=== PATIENT | male | born 1930 | race Caucasian/White ===

== ENCOUNTER 2017-04-08 22:02 | Inpatient (IN) | payer OTHER ==
[~2017-04-08] VITALS: Ht 177.8 cm; Wt 84.0 kg
[~2017-04-08 22:02] MED LIST: APR25 PO; ASPI81TA28 PO; FURO-85 PO; LISI-725 PO; METF-384 PO; METO50TA16 PO; PRAV40TA2 PO; PRLSR20 PO; VERA240T10 PO
[2017-04-08] MEDS ORDERED: SODIUM CHLORIDE 0.9% 1000ML 1,000 ML IV SCH (22:19)
--- NOTE | 2017-04-08 22:22 | EMERGENCY ROOM VISIT NOTE ---
History Report prepared by Torsten: Claribel Lazo Under the Supervision of: Dr. Darren Ayala M.D. First contact with patient: 22:02 Chief Complaint: STROKE SYMPTOMS Stated Complaint: STROKE ALERT History of Present Illness The patient is a 86 year old male who presents to the Emergency Room with complaints of sudden stroke symptoms 3 hours prior to arrival. Per EMS, the patient has been feeling dizzy on and off for the last 2 weeks, but his friend notes that this has been going on for a year.The patient reports that he felt fine all day until 3 hours prior to arrival when he began to feel dizzy. The patient states that he is having a hard time getting his mouth to move to articulate his thoughts. Per EMS, the patient was drooling from the left side of his face, had a left facial droop, and an unsteady gait. The patient denies vomiting. The patient has non-insulin dependent diabetes mellitus. He denies any recent falls and states that he has had a tetanus shot in the last 10 years. The patient has no history of strokes or atrial fibrillation and is not on any blood thinners. Source of History: patient, EMS Onset: 3 hours prior to arrival Position: other (global) Quality: other (stroke symptoms ) Timing: other (sudden ) Associated Symptoms: No vomiting Note: additional symptoms: drooling, left facial droop, unsteady gait Review of Systems See HPI for pertinent positives and negatives. A total of ten systems were reviewed and were otherwise negative. Past Medical & Surgical Medical Problems: (1) Anemia Nos (2) Diab Madelyn Wo Comp Type Ii Or Nos/Not Uncontrolled (3) Esophageal Reflux (4) Gout Nos (5) Hypertension Nos (6) Stroke-like symptoms Family History No pertinent family history stated. Social History Smoking Status: Former Smoker Drug Use: none Marital Status: Housing Status: lives alone Occupation Status: retired Current/Historical Medications Scheduled Ascorbic Acid (Vitamin C), 500 MG PO DAILY Aspirin (Aspirin Ec), 81 MG PO DAILY Ferrous Gluconate (Iron Supplement), 324 MG PO DAILY Furosemide (Lasix), 20 MG PO QAM Lisinopril (Zestril), 20 MG PO BID Metformin Hcl (Glucophage), 1,000 MG PO BID Metoprolol Tartrate (Lopressor) (Lopressor), 50 MG PO BID Pravastatin Sodium (Pravastatin Sodium), 40 MG PO HS Verapamil Hcl (Verapamil Hcl Sa), 240 MG PO QAM Allergies Coded Allergies: No Known Allergies (Verified , 04/08/17) Physical Exam Vital Signs Date Time Temp Pulse Resp B/P (MAP) Pulse Ox O2 Delivery O2 Flow Rate FiO2 04/09/17 03:00 67 20 147/75 96 Nasal Cannula 2.0 04/09/17 02:08 56 04/09/17 02:03 59 18 141/85 99 Nasal Cannula 2.0 04/08/17 23:28 63 22 137/76 100 Nasal Cannula 2.0 04/08/17 23:00 53 20 153/73 96 Room Air 04/08/17 22:42 52 20 131/73 94 Room Air 04/08/17 22:37 93 Room Air 04/08/17 22:23 54 04/08/17 22:21 61 04/08/17 22:12 36.4 64 20 145/67 98 Room Air Physical Exam GENERAL: Awake, alert, HENT: Normocephalic, atraumatic. Oropharynx unremarkable. Dry mucous membranes. EYES: Normal conjunctiva. Sclera non-icteric. NECK: Supple. No nuchal rigidity. FROM. No JVD. RESPIRATORY: Clear to auscultation. CARDIAC: Irregular irregular rate, normal rhythm. Extremities warm and well perfused. Pulses equal. ABDOMEN: Soft, non-distended. No tenderness to palpation. No rebound or guarding. No masses. RECTAL: Deferred. MUSCULOSKELETAL: Chest examination reveals no tenderness. The back is symmetrical on inspection without obvious abnormality. There is no CVA tenderness to palpation. No joint edema. LOWER EXTREMITIES: Calves are equal size bilaterally and non-tender. No edema. No discoloration. NEURO: left rachel-facial droop with dysarthria. NIH score of 3. Extremities without sensory or motor deficits noted. No cerebellar impairment. SKIN: No rash or jaundice noted. Medical Decision & Procedures ER Provider Diagnostic Interpretation: Radiology results as stated below per my review and radiologist interpretation: HEAD CT NONCONTRAST CT DOSE: 614.27 mGy.cm HISTORY: Stroke symptoms. TECHNIQUE: Multiaxial CT images of the head were performed without the use of intravenous contrast. Automated exposure control was utilized for this study. A dose lowering technique was utilized adhering to the principles of ALARA. Comparison: None. Findings: The paranasal sinuses and mastoid air cells are clear. The calvarium and skull base are intact. There is no mass, hematoma, midline shift, acute infarct. White matter hypodensity is nonspecific but suggestive of microvascular ischemic change. The ventricles and sulci demonstrate mild age-related involutional changes. Impression: No acute intracranial abnormality. Atrophy and microvascular ischemic changes. Electronically signed by: Med Rivas M.D. 04/08/2017 10:23 PM Dictated Date/Time: 04/08/2017 10:21 PM CHEST ONE VIEW PORTABLE HISTORY: Stroke symptoms. COMPARISON: Chest 12/08/2014. FINDINGS: The heart is mildly enlarged. This is slightly increased in size. Perihilar interstitial and vascular thickening has progressed consistent with mild congestive change. No pleural effusions. No pneumothorax. No new focal lung consolidations to suggest pneumonia. Right shoulder prosthesis. IMPRESSION: Progression of the mild cardiomegaly and mild pulmonary vascular congestion. Electronically signed by: Med Rivas M.D. 04/08/2017 11:01 PM Dictated Date/Time: 04/08/2017 11:00 PM [facility] MRI/MRA preliminary read: "MRI HEAD : Cortical diffusion restriction left posterior frontal lobe, involving lateral aspect of precentral gyrus, consistent with acute infarct. No substantial associated T2/FLAIR signal abnormality, suggesting that infarct is less than 6- 8 hours old. Periventricular and scattered T2/FLAIR white matter hyperintensities, nonspecific but most commonly related to chronic small vessel ischemic changes. Global cerebral volume loss No evidence of intracranial hemorrhage. MRA HEAD : No evidence of vessel occlusion. Specifically, the left MCA and its branches are patent as visualized (Given peripheral and relatively small size of acute infarct, associated occlusion may be below resolution or out of field of view). origin of right posterior cerebral artery and there is severe focal stenosis of the right posterior cerebral artery MRA NECK : Mural plaque at origin of left internal carotid artery without hemodynamically significant stenosis. Right vertebral artery is hypoplastic and not well-visualized proximally." Laboratory Results Test 04/08/17 22:29 04/08/17 22:32 04/08/17 22:38 Bedside Prothrombin Time INR 1.0 (0.9-1.1) Immature Granulocyte % (Auto) 0.5 % White Blood Count 14.34 K/uL (4.8-10.8) Red Blood Count 4.02 M/uL (4.7-6.1) Hemoglobin 12.1 g/dL (14.0-18.0) Hematocrit 36.5 % (42-52) Mean Corpuscular Volume 90.8 fL (80-100) Mean Corpuscular Hemoglobin 30.1 pg (25-34) Mean Corpuscular Hemoglobin Concent 33.2 g/dl (32-36) Platelet Count 315 K/uL (130-400) Mean Platelet Volume 11.4 fL (7.4-10.4) Neutrophils (%) (Auto) 80.7 % Lymphocytes (%) (Auto) 8.9 % Monocytes (%) (Auto) 6.4 % Eosinophils (%) (Auto) 3.1 % Basophils (%) (Auto) 0.4 % Neutrophils # (Auto) 11.57 K/uL (1.4-6.5) Lymphocytes # (Auto) 1.27 K/uL (1.2-3.4) Monocytes # (Auto) 0.92 K/uL (0.11-0.59) Eosinophils # (Auto) 0.45 K/uL (0-0.5) Basophils # (Auto) 0.06 K/uL (0-0.2) Immature Granulocyte # (Auto) 0.07 K/uL (0.00-0.02) Prothrombin Time 10.7 SECONDS (9.0-12.0) Prothromb Time International Ratio 1.0 (0.9-1.1) Activated Partial Thromboplast Time 25.0 SECONDS (21.0-31.0) Partial Thromboplastin Ratio 1.0 Magnesium Level 1.7 mg/dl (1.8-2.4) Total Creatine Kinase 36 U/L (39-308) Creatine Kinase MB < 0.5 ng/ml (0.5-3.6) Creatine Kinase MB Ratio (0-3.0) Bedside Hemoglobin 12.9 g/dl (14.0-18.0) Bedside Hematocrit 38 % (42-52) Bedside Sodium 137 mEq/L (135-144) Bedside Potassium 5.0 mEq/L (3.3-5.0) Bedside Chloride 97 mEq/L (101-112) Bedside Total CO2 26 mEq/l (24-31) Bedside Blood Urea Nitrogen 18 mg/dl (7-18) Bedside Creatinine 1.7 mg/dl (0.6-1.3) Bedside Glucose (other) 301 mg/dl (70-99) Bedside Ionized Calcium (Lucia) 1.14 mmol/l (1.12-1.32) Laboratory results reviewed by me Medications Administered Medications (Trade) Dose Ordered Sig/Maritza Route Start Time Stop Time Status Last Admin Dose Admin Sodium Chloride 1,000 ml @ 50 mls/hr Q20H IV 04/08/17 22:19 04/09/17 04:39 DC 04/08/17 22:47 50 MLS/HR Sodium Chloride 250 ml @ 999 mls/hr Q16M STAT IV 04/08/17 22:45 04/08/17 23:00 DC 04/08/17 22:47 999 MLS/HR Sodium Chloride 250 ml @ 999 mls/hr Q16M STAT IV 04/08/17 23:15 04/08/17 23:30 DC 04/08/17 23:15 999 MLS/HR Sodium Chloride 500 ml @ 125 mls/hr Q4H STAT IV 04/08/17 23:15 04/09/17 03:14 DC 04/08/17 23:15 125 MLS/HR ECG Indication: other (stroke symptoms) Rate (beats per minute): 56 Rhythm: atrial fibrillation Findings: no acute ischemic change, other (slow ventricular respons, normal axis) Change: atrial fibrillation is new from prior ECG's ED Course 2213: The patient was evaluated in room B1. A complete history and physical exam was performed. 2219: Ordered Sodium Chloride 1,000 ml @ 50 mls/hr IV. 2225: The patient was evaluated by Dr. Fox via telemedicine. 2245: Ordered Sodium Chloride 250 ml @ 999 mls/hr IV. 2315:Ordered Sodium Chloride 500 ml @ 125 mls/hr IV, Sodium Chloride 250 ml @ 999 mls/hr IV. 0250: Stat read MRI results show a left frontal acute stroke. Otherwise no evidence of edema or basilar thrombus. [facility] medicine paged for admission. Medical Decision I reviewed the patient's past medical history, medications, and the nursing notes as described above. Differentials include: ischemic CVA, hemorrhagic CVA, dehydration, electrolyte imbalance, infection, pneumonia, and urinary infection. Patient is an 86-year-old gentleman with past medical history of hypertension presents to the emergency department with new onset left hemifacial droop and dysarthria which he first noticed around 9:30 in the setting of feeling ill and dizzy around 7 PM per history of present illness. Arrival the patient continues with symptoms of facial droop and dysarthria an NIH score of 3. Otherwise extremities 5 out of 5 strength and sensation is normal. No cerebellar impairment. CT head done on arrival negative for any acute findings. Stroke activation prior to arrival, toe stroke was done and it was determined and not a TPA candidate. However, does have what appears to be new onset afib. Recommending MRI to further characterize stroke and if large would avoid anticoagulation however if small and could begin heparin to Coumadin. Only requesting MRA of the neck to evaluate for possible basilar thrombus. If present and would recommend transfer to [place] however otherwise could remain here for further management. [facility] preliminary read shows: "Cortical diffusion restriction left posterior frontal lobe, involving lateral aspect of precentral gyrus, consistent with acute infarct. No substantial associated T2/FLAIR signal abnormality, suggesting that infarct is less than 6-8 hours old." I d/w [facility] radiologist and there is no evidence basilar thrombus or edema. Will admit to medicine for further management and neurology consultation. Medication Reconcilliation Current Medication List: was personally reviewed by me Blood Pressure Screening Patient's blood pressure: Elevated blood pressure Blood pressure disposition: Elevated BP felt to be situational Consults Time Called: 2219 Consulting Physician: Dr. Fox- [facility] Neurology Returned Call: [phone] The patient was evaluated by Dr. Fox via telemedicine. Impression Primary Impression: Stroke Scribe Attestation The scribe's documentation has been prepared under my direction and personally reviewed by me in its entirety. I confirm that the note above accurately reflects all work, treatment, procedures, and medical decision making performed by me. Departure Information Referrals No Doctor, Assigned (PCP) Patient Instructions My [facility]
--- NOTE | 2017-04-08 22:25 | DIAGNOSTIC IMAGING REPORT ---
HEAD CT NONCONTRAST CT DOSE: 614.27 mGy.cm HISTORY: Stroke symptoms. TECHNIQUE: Multiaxial CT images of the head were performed without the use of intravenous contrast. Automated exposure control was utilized for this study. A dose lowering technique was utilized adhering to the principles of ALARA. Comparison: None. Findings: The paranasal sinuses and mastoid air cells are clear. The calvarium and skull base are intact. There is no mass, hematoma, midline shift, acute infarct. White matter hypodensity is nonspecific but suggestive of microvascular ischemic change. The ventricles and sulci demonstrate mild age-related involutional changes. Impression: No acute intracranial abnormality. Atrophy and microvascular ischemic changes. Electronically signed by: Med Rivas M.D. 04/08/2017 10:23 PM Dictated Date/Time: 04/08/2017 10:21 PM
[2017-04-08] MEDS ORDERED: SODIUM CHLORIDE 0.9% 500ML 500 ML IV STA ×2 (22:39→23:15)
[2017-04-08 22:42] LABS: BASO % 0.4 %; BASO ABS # 0.06 K/uL (0-0.2); COMPLETE YES; EOS % 3.1 %; HEMATOCRIT 36.5 % (42-52); IG% 0.5 %; LYMPH % 8.9 %; LYMPH ABS # 1.27 K/uL (1.2-3.4); MEAN CELL VOLUME 90.8 fL (80-100); MEAN CORPUSCULAR HEMOGLOBIN 30.1 pg (25-34); MEAN CORPUSCULAR HGB CONC 33.2 g/dl (32-36); MEAN PLATELET VOLUME 11.4 fL (7.4-10.4); MONO % 6.4 %; NEUT % 80.7 %; PLATELET COUNT 315 K/uL (130-400); RED BLOOD COUNT 4.02 M/uL (4.7-6.1); WHITE BLOOD COUNT 14.34 K/uL (4.8-10.8)
[2017-04-08] MEDS ORDERED: SODIUM CHLORIDE 0.9% 250ML 250 ML IV STA ×2 (22:45→23:15)
[2017-04-08 22:49] LABS: PROTHROMBIN TIME (PATIENT) 10.7 SECONDS (9.0-12.0)
[2017-04-08 22:52] LABS: ISTAT CREATININE 1.7 mg/dl (0.6-1.3); ISTAT HEMOGLOBIN 12.9 g/dl (14.0-18.0); ISTAT IONIZED CALCIUM 1.14 mmol/l (1.12-1.32)
[2017-04-08 23:01] LABS: BLOOD UREA NITROGEN 18 mg/dl (7-18); BUN/CREATININE RATIO 10.6 (10-20); CALCIUM 9.4 mg/dl (8.5-10.1); CARBON DIOXIDE 28 mmol/L (21-32); CHLORIDE 99 mmol/L (98-107); GLUCOSE 296 mg/dl (70-99); MAGNESIUM 1.7 mg/dl (1.8-2.4); POTASSIUM 4.9 mmol/L (3.5-5.1); SODIUM 135 mmol/L (136-145)
--- NOTE | 2017-04-08 23:02 | DIAGNOSTIC IMAGING REPORT ---
CHEST ONE VIEW PORTABLE HISTORY: Stroke symptoms. COMPARISON: Chest 12/08/2014. FINDINGS: The heart is mildly enlarged. This is slightly increased in size. Perihilar interstitial and vascular thickening has progressed consistent with mild congestive change. No pleural effusions. No pneumothorax. No new focal lung consolidations to suggest pneumonia. Right shoulder prosthesis. IMPRESSION: Progression of the mild cardiomegaly and mild pulmonary vascular congestion. Electronically signed by: Med Rivas M.D. 04/08/2017 11:01 PM Dictated Date/Time: 04/08/2017 11:00 PM
[2017-04-08] MEDS ORDERED: FERR324T PO (23:31)
[2017-04-08] MEDS ORDERED: ASCO-63 PO (23:31)
[2017-04-09] MEDS ORDERED: GADAVIST IV PRN (03:15)
[2017-04-09] MEDS ORDERED: PHARMACIST DISCHARGE MED REC CONSULT PRN (03:45)
[2017-04-09] MEDS ORDERED: ONDANSETRON INJ 2 MG/ML 2 ML VIAL IV PRN (03:45)
[2017-04-09] MEDS ORDERED: ALUMINUM/MAGNESIUM/SIMETH (MAALOX MAX) 30 ML UDC PO PRN (03:45)
[2017-04-09] MEDS ORDERED: NITROGLYCERIN 0.4 MG SL PER TAB CHARGE SL PRN (03:45)
[2017-04-09] MEDS ORDERED: POLYETHYLENE (MIRALAX) 17 GM PACK PO PRN (03:45)
--- NOTE | 2017-04-09 03:51 | History and Physical ---
History & Physical Date & Time of Service: Apr 09, 2017 at 03:50 Chief Complaint: Stroke Alert Primary Care Physician: No Doctor, Assigned History of Present Illness Source: patient, family 86-year-old male with a past medical history of hypertension, diabetes, GERD, atrial fibrillation presented to the ER with complaints of dizziness and strokelike symptoms which started 3 hours prior to arrival. Per EMS, the patient had been experiencing dizziness on and off for about 2 weeks and was noted to have left-sided facial droop and drooling from the left side of his face with some slurring of speech today. Denies any motor weakness, numbness or tingling, diplopia or blurriness of vision. The patient lives independently and ambulates without the aid of any walkers and denies any recent falls. Denies any chest pain, shortness of breath, nausea or vomiting or abdominal pain. Denies any fevers or chills or urinary complaints. Past Medical/Surgical History Diabetes, hypertension, atrial fibrillation Social History Smoking Status: Former Smoker Drug Use: none Marital Status: Occupational Status: retired Immunizations History of Influenza Vaccine: Yes Influenza Vaccine Date: Apr 27, 2009 History of Tetanus Vaccine?: Unknown History of Pneumococcal: Yes Pneumococcal Date: Apr 27, 2007 History of Hepatitis B Vaccine: Unknown Multi-Drug Resistant Organisms History of MDRO: No Allergies Coded Allergies: No Known Allergies (Verified , 04/08/17) Home Medications Scheduled Ascorbic Acid (Vitamin C), 500 MG PO DAILY Aspirin (Aspirin Ec), 81 MG PO DAILY Ferrous Gluconate (Iron Supplement), 324 MG PO DAILY Furosemide (Lasix), 20 MG PO QAM Lisinopril (Zestril), 20 MG PO BID Metformin Hcl (Glucophage), 1,000 MG PO BID Metoprolol Tartrate (Lopressor) (Lopressor), 50 MG PO BID Pravastatin Sodium (Pravastatin Sodium), 40 MG PO HS Verapamil Hcl (Verapamil Hcl Sa), 240 MG PO QAM Review of Systems Constitutional: No fever, No chills Eyes: No worsening of vision ENT: + hearing loss Respiratory: No cough, No sputum Cardiovascular: No chest pain Abdomen: No pain, No nausea, No vomiting Musculoskeletal: No joint pain Genitourinary - Male: No hematuria, No dysuria Neurologic: + problem reported (left facial droop no resolved. Slurring of speech), No paralysis, No numbness/tingling Endocrine: No fatigue Hematologic / Lymphatic: No abnormal bleeding/bruising Integumentary: No rash Physical Exam Vital Signs Date Time Temp Pulse Resp B/P (MAP) Pulse Ox O2 Delivery O2 Flow Rate FiO2 04/09/17 03:00 67 20 147/75 96 Nasal Cannula 2.0 04/09/17 02:08 56 04/09/17 02:03 59 18 141/85 99 Nasal Cannula 2.0 04/08/17 23:28 63 22 137/76 100 Nasal Cannula 2.0 04/08/17 23:00 53 20 153/73 96 Room Air 04/08/17 22:42 52 20 131/73 94 Room Air 04/08/17 22:37 93 Room Air 04/08/17 22:23 54 04/08/17 22:21 61 04/08/17 22:12 36.4 64 20 145/67 98 Room Air General Appearance: WD/WN, no apparent distress Eyes: normal inspection ENT: + pertinent finding (hearing loss) Neck: supple Respiratory/Chest: chest non-tender, + rhonchi Cardiovascular: + irregularly irregular Abdomen/GI: non tender, soft Extremities/Musculoskelatal: no pedal edema, normal range of motion Neurologic/Psych: cylinder batcher II-XII nml as tested, alert, normal mood/affect, oriented x 3 Skin: normal color Diagnostics Laboratory Results Results Past 24 Hours Test 04/08/17 22:21 04/08/17 22:29 04/08/17 22:32 04/08/17 22:38 Range/Units Bedside Glucose 270 70-99 mg/dl Bedside Prothrombin Time INR 1.0 0.9-1.1 White Blood Count 14.34 4.8-10.8 K/uL Red Blood Count 4.02 4.7-6.1 M/uL Hemoglobin 12.1 14.0-18.0 g/dL Hematocrit 36.5 42-52 % Mean Corpuscular Volume 90.8 80-100 fL Mean Corpuscular Hemoglobin 30.1 25-34 pg Mean Corpuscular Hemoglobin Concent 33.2 32-36 g/dl Platelet Count 315 130-400 K/uL Mean Platelet Volume 11.4 7.4-10.4 fL Neutrophils (%) (Auto) 80.7 % Lymphocytes (%) (Auto) 8.9 % Monocytes (%) (Auto) 6.4 % Eosinophils (%) (Auto) 3.1 % Basophils (%) (Auto) 0.4 % Neutrophils # (Auto) 11.57 1.4-6.5 K/uL Lymphocytes # (Auto) 1.27 1.2-3.4 K/uL Monocytes # (Auto) 0.92 0.11-0.59 K/uL Eosinophils # (Auto) 0.45 0-0.5 K/uL Basophils # (Auto) 0.06 0-0.2 K/uL RDW Standard Deviation 45.1 36.4-46.3 fL RDW Coefficient of Variation 13.7 11.5-14.5 % Immature Granulocyte % (Auto) 0.5 % Immature Granulocyte # (Auto) 0.07 0.00-0.02 K/uL Prothrombin Time 10.7 9.0-12.0 SECONDS Prothromb Time International Ratio 1.0 0.9-1.1 Activated Partial Thromboplast Time 25.0 21.0-31.0 SECONDS Partial Thromboplastin Ratio 1.0 Sodium Level 135 136-145 mmol/L Potassium Level 4.9 3.5-5.1 mmol/L Chloride Level 99 98-107 mmol/L Carbon Dioxide Level 28 21-32 mmol/L Anion Gap 8.0 20.0 16-25 mmol/L Blood Urea Nitrogen 18 7-18 mg/dl Creatinine 1.70 0.60-1.40 mg/dl Est Creatinine Clear Calc Drug Dose 34.3 ml/min Estimated GFR () 41.1 Estimated GFR (Non- 35.5 BUN/Creatinine Ratio 10.6 10-20 Random Glucose 296 70-99 mg/dl Calcium Level 9.4 8.5-10.1 mg/dl Magnesium Level 1.7 1.8-2.4 mg/dl Total Creatine Kinase 36 39-308 U/L Creatine Kinase MB < 0.5 0.5-3.6 ng/ml Creatine Kinase MB Ratio 0-3.0 Troponin I 0.044 0-0.045 ng/ml Bedside Hemoglobin 12.9 14.0-18.0 g/dl Bedside Hematocrit 38 42-52 % Bedside Sodium 137 135-144 mEq/L Bedside Potassium 5.0 3.3-5.0 mEq/L Bedside Chloride 97 101-112 mEq/L Bedside Total CO2 26 24-31 mEq/l Bedside Blood Urea Nitrogen 18 7-18 mg/dl Bedside Creatinine 1.7 0.6-1.3 mg/dl Bedside Glucose (other) 301 70-99 mg/dl Bedside Ionized Calcium (Lucia) 1.14 1.12-1.32 mmol/l Diagnostic Radiology HEAD CT NONCONTRAST CT DOSE: 614.27 mGy.cm HISTORY: Stroke symptoms. TECHNIQUE: Multiaxial CT images of the head were performed without the use of intravenous contrast. Automated exposure control was utilized for this study. A dose lowering technique was utilized adhering to the principles of ALARA. Comparison: None. Findings: The paranasal sinuses and mastoid air cells are clear. The calvarium and skull base are intact. There is no mass, hematoma, midline shift, acute infarct. White matter hypodensity is nonspecific but suggestive of microvascular ischemic change. The ventricles and sulci demonstrate mild age-related involutional changes. Impression: No acute intracranial abnormality. Atrophy and microvascular ischemic changes. Electronically signed by: Med Rivas M.D. 04/08/2017 10:23 PM Dictated Date/Time: 04/08/2017 10:21 PM CHEST ONE VIEW PORTABLE HISTORY: Stroke symptoms. COMPARISON: Chest 12/08/2014. FINDINGS: The heart is mildly enlarged. This is slightly increased in size. Perihilar interstitial and vascular thickening has progressed consistent with mild congestive change. No pleural effusions. No pneumothorax. No new focal lung consolidations to suggest pneumonia. Right shoulder prosthesis. IMPRESSION: Progression of the mild cardiomegaly and mild pulmonary vascular congestion. Electronically signed by: Med Rivas M.D. 04/08/2017 11:01 PM Dictated Date/Time: 04/08/2017 11:00 PM [facility] MRI/MRA preliminary read: "MRI HEAD : Cortical diffusion restriction left posterior frontal lobe, involving lateral aspect of precentral gyrus, consistent with acute infarct. No substantial associated T2/FLAIR signal abnormality, suggesting that infarct is less than 6- 8 hours old. Periventricular and scattered T2/FLAIR white matter hyperintensities, nonspecific but most commonly related to chronic small vessel ischemic changes. Global cerebral volume loss No evidence of intracranial hemorrhage. MRA HEAD : No evidence of vessel occlusion. Specifically, the left MCA and its branches are patent as visualized (Given peripheral and relatively small size of acute infarct, associated occlusion may be below resolution or out of field of view). origin of right posterior cerebral artery and there is severe focal stenosis of the right posterior cerebral artery The MRA NECK : Mural plaque at origin of left internal carotid artery without hemodynamically significant stenosis. Right vertebral artery is hypoplastic and not well-visualized proximally." Impression Assessment and Plan 86-year-old male with a past medical history of hypertension, diabetes, GERD, atrial fibrillation presented to the ER with complaints of dizziness and strokelike symptoms which started 3 hours prior to arrival. Head CT and telemetry stroke consult with [facility] were obtained and it was determined that he was not a candidate for TPA. 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 - Continue aspirin, statin - Consult neurology, speech, PT/OT - Lipid panel and hemoglobin A1c ordered Atrial fibrillation: - Rate control with metoprolol and diltiazem - He is currently not on any anticoagulation -[id number] of 6, 9.7% annual risk of stroke - He will require anticoagulation - Echo ordered - Initial troponin 0.044, trended every 8 hours Acute kidney injury: - Creatinine at 1.7, likely secondary to dehydration - Monitor creatinine Hypertension: - Zestril currently held for permissive hypertension Diabetes: - Metformin held - insulin sliding scale DVT prophylaxis: -SCDs DO NOT RESUSCITATE Disposition: Admitted to telemetry Resident Physician Supervision Note: I was present with Dr. Brian during the history and exam. I discussed the case with the resident and agree with the findings and plan as documented in the note. Any exceptions or clarifications are listed here: 86 y/o M HTN, HPL, DM - presented a stroke alert to ER - initially with dizziness, facial droop, slurred speech - largely resolved although mild speech impairment persists Pr may have Hx of PAF OE AAO x 2 S1,2 R CTAB NT , NDNo CCE Neuro exam nonfocal although mild speech impairment may be present P: ASA, statin therapy - consider full dose anticoagulation going forward Pt's MRI is neg - further studies therefore to discretion of Neuro service PT/OT S1,2 R Documented By: Kirby Chawla Level of Care Telemetry Advanced Directives Existing Living Will: Yes Existing Power of Medical Geneticist: Yes Resuscitation Status DO NOT RESUSCITATE VTE Prophylaxis VTE Risk Assessment Done? Y/N: Yes Risk Level: Moderate Given or contraindicated: SCD's Resident Tracking Resident Involvement: Resident Care Provided Care Provided: Adult Hospital Medicine
[2017-04-09 04:49] VITALS: BP 168/86; PULSE 74; TEMP 36.5; O2SAT 99; Ht 177.8 cm; Wt 84.0 kg
[2017-04-09] MEDS ORDERED: GLUCAGON FOR INJ 1 MG VIAL SQ PRN (06:00)
[2017-04-09] MEDS ORDERED: GLUCOSE 40% GEL 15 GM TUBE PO PRN (06:00)
[2017-04-09] MEDS ORDERED: DEXTROSE 50% 50 ML SYR IV PRN (06:00)
[2017-04-09] MEDS ORDERED: GLUCOSE 10 TABS/TUBE PO PRN (06:00)
[2017-04-09] MEDS: MAGNESIUM SULFATE 1GM / D5W 1 GM in PREMIXED IN D5W 100 ML IV SCH ×2 (06:21→07:43)
[2017-04-09] MEDS: SODIUM CHLORIDE 0.9% 1000ML 1,000 ML IV SCH ×2 (06:21→20:01)
[2017-04-09 06:25] LABS: HEMATOCRIT 34.6 % (42-52); MEAN CELL VOLUME 91.8 fL (80-100); MEAN CORPUSCULAR HEMOGLOBIN 28.6 pg (25-34); MEAN CORPUSCULAR HGB CONC 31.2 g/dl (32-36); MEAN PLATELET VOLUME 11.7 fL (7.4-10.4); PLATELET COUNT 246 K/uL (130-400); RED BLOOD COUNT 3.77 M/uL (4.7-6.1); WHITE BLOOD COUNT 8.31 K/uL (4.8-10.8)
[2017-04-09 06:55] LABS: BUN/CREATININE RATIO 12.3 (10-20); CALCIUM 8.3 mg/dl (8.5-10.1); CREATININE 1.8 mg/dl (0.60-1.40); POTASSIUM 4.7 mmol/L (3.5-5.1)
[2017-04-09 07:24] VITALS: BP 155/82; PULSE 80; TEMP 36.8; O2SAT 93
[2017-04-09] MEDS: ASPIRIN 81 MG ECTAB PO SCH ×2 (07:41→12:12)
[2017-04-09] MEDS: VERAPAMIL HCL 240 MG TABCR PO SCH ×2 (07:41→12:11)
[2017-04-09] MEDS: METOPROLOL TARTRATE 50 MG TAB PO SCH ×3 (07:41→19:54)
[2017-04-09] MEDS: INSULIN ASPART 100 UNITS/ML 3 ML PEN SC SCH ×4 (07:47→19:56)
[2017-04-09] MEDS ORDERED: LISINOPRIL 20 MG TAB PO SCH (09:00)
[2017-04-09] MEDS ORDERED: FUROSEMIDE 20 MG TAB PO SCH (09:00)
--- NOTE | 2017-04-09 09:08 | DIAGNOSTIC IMAGING REPORT ---
BRAIN WITHOUT CONTRAST HISTORY: 86 years-old Male dysarthria - stroke protocol acute dysarthria with strokelike symptoms. Follow-up study. COMPARISON: CT head of same day TECHNIQUE: Multiplanar multisequence MRI of the brain was obtained without contrast. FINDINGS: Linear cortically based restricted diffusion seen within the posterior left frontal lobe near the vertex. No significant signal abnormality on the T2-FLAIR sequences to correlate with this finding. Midline structures including the corpus callosum, brainstem, optic chiasm, pituitary and pineal gland are unremarkable. No cerebellar tonsillar herniation. Degenerative changes are seen involving the imaged upper cervical spine. Moderate atrophy is noted without acute intracranial hemorrhage, midline shift, intracranial mass or abnormal extra-axial collections. No hydrocephalus. Moderate degree of scattered T2 prolongation is present within the subcortical, deep and periventricular white matter of the cerebral hemispheres bilaterally. Major flow voids at the skull base appear patent. The right vertebral artery appears to be hypoplastic. Mastoid air cells are clear. There is mild mucosal thickening of the nasopharynx. Orbits are symmetric with lens thinning bilaterally. IMPRESSION: 1. Cortically based restricted diffusion of the posterior left frontal lobe without significant edema is compatible with acute infarction. No associated hemorrhage. 2. Atrophy with background of chronic microvascular ischemic changes. The above report was generated using voice recognition software. It may contain grammatical, syntax or spelling errors. Electronically signed by: Chadd Red M.D. 04/09/2017 9:06 AM Dictated Date/Time: 04/09/2017 8:59 AM
--- NOTE | 2017-04-09 09:15 | DIAGNOSTIC IMAGING REPORT ---
MRA HEAD WITHOUT CONTRAST HISTORY: 86 years-old Male dysarthria - stroke protocol acute strokelike symptoms. Acute infarction of the posterior left frontal lobe seen on comparison brain MR. Follow-up study. COMPARISON: Brain MRI of same day, CT head 04/08/2017. TECHNIQUE: MR angiography of the brain was obtained with 3-D [id number] sequencing and MIP reformats. FINDINGS: The bilateral internal carotid arteries are patent. Proximal branches of the bilateral middle cerebral arteries appear patent. Bilateral A1 segments are patent. The left vertebral artery appears dominant. The basilar artery is patent. Note is made of origin of the right posterior cerebral artery. Bilateral posterior cerebral arteries appear patent, however there is focal high-grade stenosis of the proximal P1 segment as seen on image 112. IMPRESSION: 1. Patency of the bilateral anterior, middle and posterior cerebral vasculature, specifically no left MCA distribution high-grade stenosis or proximal branch occlusion identified. 2. origin of the right posterior cerebral artery. There is focal high-grade stenosis of the proximal P1 segment as above. 3. Dominant left vertebral artery. The above report was generated using voice recognition software. It may contain grammatical, syntax or spelling errors. Electronically signed by: Chadd Red M.D. 04/09/2017 9:14 AM Dictated Date/Time: 04/09/2017 9:07 AM
--- NOTE | 2017-04-09 09:16 | Neurology Consultation ---
Neurology Consultation Date of Consultation: Apr 09, 2017. Attending Physician: Kirby Chawla M.D. Primary Care Physician: No Doctor, Assigned Reason for Consultation: Stroke History of Present Illness Source: hospital records The patient is an 86-year-old male who presented to the emergency department yesterday for further assessment of dizziness, facial droop, and unsteadiness of gait that began approximately 3 hours prior to arrival. He has been exhibiting some difficulty with expressive speech and was found to have a small , acute, stroke within the left posterior frontal lobe/precentral gyrus on MRI. Electrocardiogram is consistent with atrial fibrillation. MR angiography of the head and neck suggests some insignificant plaque within the left internal carotid artery. The right vertebral artery appears to be hypoplastic. There is a focal stenosis within the right posterior cerebral artery. Past medical history notable for type 2 diabetes mellitus and hypertension. He takes a baby aspirin on a daily basis. He is not prescribed an anticoagulant. He is also prescribed a statin, antihypertensives, and oral diabetes medications. The patient continues to exhibit some difficulty with expressive speech this morning. He does not appear to have a facial droop and does not complain of dizziness or weakness. Past Medical/Surgical History Medical Problems: (1) Stroke Status: Acute Family History There is no pertinent family history that would place this patient at increased risk for additional diagnoses or complications in light of his advanced age and nature of presenting problem. Social History Drug Use: none Marital Status: Housing Status: lives alone Occupation Status: retired Allergies Coded Allergies: No Known Allergies (Verified , 04/08/17) Current Inpatient Medications Current Inpatient Medications Medications (Trade) Dose Ordered Sig/Maritza Route Start Time Stop Time Status Last Admin Dose Admin Gadobutrol (Gadavist) 8.5 mmol UD PRN IV 04/09/17 03:15 04/13/17 03:14 Miscellaneous Information (Pharmacist Discharge Med Rec Consult) 1 ea UD PRN N/A 04/09/17 03:45 05/09/17 03:44 Al Hydrox/Mg Hydrox/Simethicone (Maalox Max Susp) 15 ml Q4H PRN PO 04/09/17 03:45 05/09/17 03:44 Ondansetron HCl (Zofran Inj) 4 mg Q6H PRN IV 04/09/17 03:45 05/09/17 03:44 Nitroglycerin (Nitrostat Tab) 0.4 mg UD PRN SL 04/09/17 03:45 05/09/17 03:44 Polyethylene (Miralax Powder Packet) 17 gm DAILY PRN PO 04/09/17 03:45 05/09/17 03:44 Aspirin (Ecotrin Tab) 81 mg DAILY PO 04/09/17 09:00 05/09/17 08:59 Metoprolol Tartrate (Lopressor Tab) 50 mg BID PO 04/09/17 09:00 05/09/17 08:59 Pravastatin Sodium (Pravachol Tab) 40 mg HS PO 04/09/17 21:00 05/09/17 20:59 Verapamil HCl (Calan-Sr Tab) 240 mg QAM PO 04/09/17 09:00 05/09/17 08:59 Insulin Aspart (novoLOG ASPART) SLIDING SCALE G... ACHS SC 04/09/17 07:00 05/09/17 06:59 04/09/17 07:47 1 UNITS Sodium Chloride 1,000 ml @ 80 mls/hr [id number] IV 04/09/17 06:00 05/09/17 05:59 04/09/17 06:21 80 MLS/HR Glucose (Glucose 40% Gel) 15-30 GRAMS 15 GRAMS... UD PRN PO 04/09/17 06:00 05/09/17 05:59 Glucose (Glucose Chew Tab) 4-8 Tablets 4 Tabl... UD PRN PO 04/09/17 06:00 05/09/17 05:59 Dextrose (Dextrose 50% 50ML Syringe) 25-50ML OF 50% DW IV FOR... UD PRN IV 04/09/17 06:00 05/09/17 05:59 Glucagon (Glucagon Inj) 1 mg UD PRN SQ 04/09/17 06:00 05/09/17 05:59 Review of Systems Constitutional: No fever or chills Eyes: No vision loss or diplopia ENT: Patient reports chronic hearing loss Cardiovascular: No chest pain or palpitations Respiratory: No coughing wheezing or shortness of breath Neurological: As per history of present illness Hematological: No abnormal bleeding or swollen glands A full 10 point review of systems was obtained for this patient with pertinent positives and negatives described in the history of present illness with additional negatives listed above. All remaining systems reviewed and are negative. Physical Exam Vital Signs (Past 24 Hrs): Date Time Temp Pulse Resp B/P (MAP) Pulse Ox O2 Delivery O2 Flow Rate FiO2 04/09/17 07:24 36.8 80 22 155/82 (106) 93 Room Air 04/09/17 04:49 36.5 74 18 168/86 99 Nasal Cannula 2.0 04/09/17 04:04 63 20 124/68 96 Room Air 04/09/17 03:00 67 20 147/75 96 Nasal Cannula 2.0 04/09/17 02:08 56 04/09/17 02:03 59 18 141/85 99 Nasal Cannula 2.0 04/08/17 23:28 63 22 137/76 100 Nasal Cannula 2.0 04/08/17 23:00 53 20 153/73 96 Room Air 04/08/17 22:42 52 20 131/73 94 Room Air 04/08/17 22:37 93 Room Air 04/08/17 22:23 54 04/08/17 22:21 61 04/08/17 22:12 36.4 64 20 145/67 98 Room Air The patient is a well-developed, well-nourished, elderly male. He is lying comfortably in bed, no acute distress. He is alert and oriented to person, place , and time. Recent and remote memory intact. Attention and concentration normal. The patient has mild to moderate difficulty with expressive speech. Mild problems with object naming noted. Mild problems with phrase repetition noted. Language comprehension intact. Finger naming intact. No left right confusion. No acalculia. Vocabulary normal. Visual elaine full to confrontation. Visual acuity normal. Pupils equal round reactive to light and accommodation. Eye movements normal. Facial sensation intact. There appears to be normal facial symmetry and strength. No obvious facial droop at this time. There is diminished hearing to finger rub bilaterally. Palate elevates to midline. Shoulder shrug strength intact bilaterally. Tongue protrudes to midline. There is a length-dependent deficit noted to all sensory modalities. Deep tendon reflexes are diminished throughout. Achilles tendon reflexes absent bilaterally. Plantar response is equivocal bilaterally. There is no dysmetria with finger to nose or heel to boswell bilaterally. Ophthalmoscopic examination reveals normal-appearing optic nerves and posterior elements. No papilledema or hemorrhages. Carotid pulses normal bilaterally, no bruits to auscultation. Gait and station not tested due to safety concerns. Muscle strength appears to be grossly normal throughout. No hemiparesis. No pronator drift. Muscle tone normal throughout. No atrophy. No abnormal movements observed. Laboratory Results Past 24 Hours: 04/09/17 06:00 04/09/17 06:00 Test 04/08/17 22:29 04/08/17 22:32 04/08/17 22:38 04/09/17 03:42 Bedside Prothrombin Time INR 1.0 (0.9-1.1) Immature Granulocyte % (Auto) 0.5 % White Blood Count 14.34 K/uL (4.8-10.8) Red Blood Count 4.02 M/uL (4.7-6.1) Hemoglobin 12.1 g/dL (14.0-18.0) Hematocrit 36.5 % (42-52) Mean Corpuscular Volume 90.8 fL (80-100) Mean Corpuscular Hemoglobin 30.1 pg (25-34) Mean Corpuscular Hemoglobin Concent 33.2 g/dl (32-36) Platelet Count 315 K/uL (130-400) Mean Platelet Volume 11.4 fL (7.4-10.4) Neutrophils (%) (Auto) 80.7 % Lymphocytes (%) (Auto) 8.9 % Monocytes (%) (Auto) 6.4 % Eosinophils (%) (Auto) 3.1 % Basophils (%) (Auto) 0.4 % Neutrophils # (Auto) 11.57 K/uL (1.4-6.5) Lymphocytes # (Auto) 1.27 K/uL (1.2-3.4) Monocytes # (Auto) 0.92 K/uL (0.11-0.59) Eosinophils # (Auto) 0.45 K/uL (0-0.5) Basophils # (Auto) 0.06 K/uL (0-0.2) Immature Granulocyte # (Auto) 0.07 K/uL (0.00-0.02) Prothrombin Time 10.7 SECONDS (9.0-12.0) Prothromb Time International Ratio 1.0 (0.9-1.1) Activated Partial Thromboplast Time 25.0 SECONDS (21.0-31.0) Partial Thromboplastin Ratio 1.0 Magnesium Level 1.7 mg/dl (1.8-2.4) Total Creatine Kinase 36 U/L (39-308) Creatine Kinase MB < 0.5 ng/ml (0.5-3.6) Creatine Kinase MB Ratio (0-3.0) Troponin I 0.044 ng/ml (0-0.045) Bedside Hemoglobin 12.9 g/dl (14.0-18.0) Bedside Hematocrit 38 % (42-52) Bedside Sodium 137 mEq/L (135-144) Bedside Potassium 5.0 mEq/L (3.3-5.0) Bedside Chloride 97 mEq/L (101-112) Bedside Total CO2 26 mEq/l (24-31) Bedside Blood Urea Nitrogen 18 mg/dl (7-18) Bedside Creatinine 1.7 mg/dl (0.6-1.3) Bedside Glucose (other) 301 mg/dl (70-99) Bedside Ionized Calcium (Lucia) 1.14 mmol/l (1.12-1.32) Test 04/09/17 06:00 04/09/17 06:34 Red Blood Count 3.77 M/uL (4.7-6.1) Mean Corpuscular Volume 91.8 fL (80-100) Mean Corpuscular Hemoglobin 28.6 pg (25-34) Mean Corpuscular Hemoglobin Concent 31.2 g/dl (32-36) RDW Standard Deviation 45.9 fL (36.4-46.3) RDW Coefficient of Variation 13.8 % (11.5-14.5) Mean Platelet Volume 11.7 fL (7.4-10.4) Anion Gap 7.0 mmol/L (3-11) Est Creatinine Clear Calc Drug Dose 29.9 ml/min Estimated GFR () 38.4 Estimated GFR (Non- 33.1 BUN/Creatinine Ratio 12.3 (10-20) Calcium Level 8.3 mg/dl (8.5-10.1) Bedside Glucose 190 mg/dl (70-99) Imaging I reviewed the images as well as the radiologist's interpretation of the brain MRI and MR angiography of the head and neck as described in the history of present illness. There is also an element of generalized cerebral atrophy and moderate chronic small vessel ischemic changes throughout the brain parenchyma. 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 This patient has a mild to moderate residual expressive aphasia without associated right hemiparesis. The focal stenosis of the right posterior cerebral artery is not clinically significant at this time. The moderate plaque at the origin of the left internal carotid artery is probably not clinically significant. Plan I would recommend anticoagulation for this patient in light of his recent probable cardioembolic stroke and atrial fibrillation. I do not have a specific preference for the type of anticoagulation for this patient. Either warfarin or a newer oral anticoagulant would be appropriate and I would leave this decision to the discretion of the attending hospitalist physician. This patient will need speech therapy, occupational therapy, and physical therapy. He should probably continue with daily low-dose aspirin as well in light of the right posterior cerebral artery stenosis and chronic small vessel ischemic disease throughout the brain parenchyma. He will need ongoing medical management of his cardiovascular comorbidities including hypertension, hyperlipidemia, and diabetes mellitus. Would attempt to maintain an average systolic blood pressure of around 140 mmHg for the time being. Further, gentle, blood pressure reductions can be made over the next few days and should be monitored by the attending hospitalist and primary care physician. I have no further immediate recommendations for this patient. Additional follow- up appointments with neurology are probably not necessary. Please contact me if I may be of further assistance.
--- NOTE | 2017-04-09 09:28 | DIAGNOSTIC IMAGING REPORT ---
MRA NECK COMBO CLINICAL HISTORY: 86 years-old Male with dysarthria - stroke protocol. Acute left frontal lobe infarction seen on comparison MRI. Patient presents with acute dysarthria. Follow-up study. COMPARISON STUDY: MRI brain of same day. TECHNIQUE: Axial 2-D [id number] MR angiography of the neck is performed. Subsequently, following the IV administration of 8.5 cc of Magnevist coronal MR angiogram of the neck was performed to corroborate the findings. 3-D reformats are created and assessed. All measurements were calculated based on NASCET criteria. FINDINGS: The bilateral common and internal carotid arteries are patent. Evaluation is mildly limited secondary to motion artifact. There is mild luminal narrowing of the proximal cervical segment left internal carotid artery, likely from atherosclerotic plaquing causing less than 50% stenosis. The left vertebral artery is dominant and the right vertebral artery is somewhat hypoplastic. Both vessels appear patent. Basilar artery also appears patent. No high-grade stenosis, proximal branch occlusion or aneurysm identified. IMPRESSION: 1. No high-grade stenosis, proximal branch occlusion or aneurysm. 2. Mild atherosclerotic plaquing involving the proximal cervical segment left internal carotid artery causes less than 50% stenosis. 3. Hypoplastic right vertebral artery. The above report was generated using voice recognition software. It may contain grammatical, syntax or spelling errors. Electronically signed by: Chadd Red M.D. 04/09/2017 9:26 AM Dictated Date/Time: 04/09/2017 9:20 AM
[2017-04-09 10:28] LABS: ESTIMATED AVERAGE GLUCOSE 171 mg/dl; HA1C FLAG Normal (Normal)
--- NOTE | 2017-04-09 11:01 | ECHOCARDIOGRAM REPORT ---
*NOTICE TO RECEIVING DEMOCRAT AGENCY This information is strictly Confidential and protected under [place] law. [place] law prohibits you from making any further disclosure of this information unless further disclosure is expressly permitted by the written consent of the person to whom it pertains or is authorized by law. A general authorization for the release of medical or other information is not sufficient for this purpose. Hospital accepts no responsibility if the information is made available to any other person, INCLUDING THE PATIENT. Interpretation Summary * Name: PAZ WILLARD Study Date: 04/09/2017 07:35 AM BP: 168/86 mmHg * Patient Location: C.2T\S\S232\S\1 HR: 84 * : 1930 (M/d/yyy) Gender: Male Height: 70 in * Age: 86 yrs Ethnicity: CA Weight: 195 lb * Ordering Physician: Trina Aragon * Referring Physician: Self, Referred * Performed By: Diana Redmond RCS * * Reason For Study: A-FIB / TIA * BSA: 2.1 m2 * -- Conclusions -- * Left ventricular systolic function is normal. * No regional wall motion abnormalities noted. * Ejection Fraction = 55-60%. * There is mild concentric left ventricular hypertrophy. * There is mild mitral regurgitation. * There is mild tricuspid regurgitation. Procedure Details * A complete two-dimensional transthoracic echocardiogram was performed (2D, M-mode, Doppler and color flow Doppler). * A saline contrast injection was performed to assess for cardiac shunting. * The injection was performed through an intravenous line in the right arm. * The attending nurse who injected the saline contrast was RACHEL SERNA, RN. * A total of 10 cc of agitated saline was given. Left Ventricle * The left ventricle is normal in size. * There is mild concentric left ventricular hypertrophy. * Left ventricular systolic function is normal. * Ejection Fraction = 55-60%. * No regional wall motion abnormalities noted. Right Ventricle * The right ventricle is grossly normal size. * The right ventricular systolic function is normal as assessed by tricuspid annular plane systolic excursion (TAPSE) (normal >1.5 cm). Atria * The left atrium is moderately dilated. * The right atrium is mildly dilated. * The interatrial septum is intact with no evidence for an atrial septal defect. * Injection of contrast documented no interatrial shunt. Mitral Valve * The mitral valve anatomy is normal. * There is no mitral valve stenosis. * There is mild mitral regurgitation. Tricuspid Valve * The tricuspid valve anatomy is normal. * There is no tricuspid stenosis. * There is mild tricuspid regurgitation. Aortic Valve * The aortic valve is trileaflet. * The aortic valve opens well. * Aortic valve sclerosis moderate, without significant aortic valvular stenosis. * No aortic regurgitation is present. Pulmonic Valve * The pulmonary valve is not well seen, but the Doppler examination is normal without significant regurgitation or stenosis. Great Vessels * The aortic root is normal size. * The pulmonary is not well visualized. Pericardium/Pleural * There is no pericardial effusion. Great Vessels * Normal inferior vena cava size and collapsability with sniff indicates a normal right atrial pressure of 3 mmHg MMode 2D Measurements and Calculations IVSd 1.4 cm IVSs 1.7 cm LVIDd 4.2 cm LVIDs 3.1 cm LVPWd 1.3 cm LVPWs 1.5 cm IVS/LVPW 1.1 FS 25.2 % EDV(Teich) 78.7 ml ESV(Teich) 39.3 ml EF(Teich) 50.1 % EDV(cubed) 74.2 ml ESV(cubed) 31.1 ml EF(cubed) 58.1 % % IVS thick 18.7 % % LVPW thick 16.6 % LV mass(C)d 213.8 grams LV mass(C)dI 103.6 grams/m\S\2 LV mass(C)s 186.3 grams LV mass(C)sI 90.2 grams/m\S\2 SV(Teich) 39.4 ml SI(Teich) 19.1 ml/m\S\2 SV(cubed) 43.1 ml SI(cubed) 20.9 ml/m\S\2 Ao root diam 3.1 cm Ao root area 7.6 cm\S\2 ACS 1.6 cm LA dimension 4.9 cm LA/Ao 1.6 LVOT diam 2.1 cm LVOT area 3.4 cm\S\2 Doppler Measurements and Calculations MV E max cam 122.4 cm/sec MV P1/2t max cam 115.4 cm/sec MV P1/2t 70.6 msec MVA(P1/2t) 3.1 cm\S\2 MV dec slope 478.6 cm/sec\S\2 MV dec time 0.18 sec Ao V2 max 89.3 cm/sec Ao max PG 3.2 mmHg Ao max PG (full) 0.40 mmHg ASHA(V,A) 3.2 cm\S\2 ASHA(V,D) 3.2 cm\S\2 LV V1 max PG 2.8 mmHg LV V1 max 83.6 cm/sec TR max cam 356.6 cm/sec
[2017-04-09 11:35] VITALS: BP_SYST 166; BP_SYST 175; BP_DIAS 71; BP_DIAS 83; PULSE 110; TEMP 37; O2SAT 91
[2017-04-09 15:04] VITALS: BP 165/95; PULSE 76; TEMP 36.5; O2SAT 92
--- NOTE | 2017-04-09 16:42 | Family Medicine Progress Note ---
Progress Note Date of Service Apr 09, 2017. Subjective Pt evaluation today including: conversation w/ patient, physical exam, chart review, lab review, review of studies Pain: No pain reported this morning Voiding: no voiding problems, no incontinence Patient states that he is feeling better than yesterday evening but was unable to sleep overnight. The patient is quite difficult to comprehend due to his slurred speech but responds appropriately to questions and is alert and oriented. For this reason it is difficult to fully assess his mental status but at this time appears to be responding appropriately with full comprehension. Constitutional: No fever, No chills Respiratory: No cough, No shortness of breath Cardiovascular: No chest pain, No palpitations Abdomen: No pain, No nausea, No vomiting, No diarrhea, No constipation Neurologic: + problem reported (Slurred Speech, Facial Droop), No memory loss, No numbness/tingling Medications Current Inpatient Medications Medications (Trade) Dose Ordered Sig/Maritza Route Start Time Stop Time Status Last Admin Dose Admin Gadobutrol (Gadavist) 8.5 mmol UD PRN IV 04/09/17 03:15 04/13/17 03:14 Miscellaneous Information (Pharmacist Discharge Med Rec Consult) 1 ea UD PRN N/A 04/09/17 03:45 05/09/17 03:44 Al Hydrox/Mg Hydrox/Simethicone (Maalox Max Susp) 15 ml Q4H PRN PO 04/09/17 03:45 05/09/17 03:44 Ondansetron HCl (Zofran Inj) 4 mg Q6H PRN IV 04/09/17 03:45 05/09/17 03:44 Nitroglycerin (Nitrostat Tab) 0.4 mg UD PRN SL 04/09/17 03:45 05/09/17 03:44 Polyethylene (Miralax Powder Packet) 17 gm DAILY PRN PO 04/09/17 03:45 05/09/17 03:44 Aspirin (Ecotrin Tab) 81 mg DAILY PO 04/09/17 09:00 05/09/17 08:59 04/09/17 12:12 81 MG Metoprolol Tartrate (Lopressor Tab) 50 mg BID PO 04/09/17 09:00 05/09/17 08:59 04/09/17 12:11 50 MG Pravastatin Sodium (Pravachol Tab) 40 mg HS PO 04/09/17 21:00 05/09/17 20:59 Verapamil HCl (Calan-Sr Tab) 240 mg QAM PO 04/09/17 09:00 05/09/17 08:59 04/09/17 12:11 240 MG Insulin Aspart (novoLOG ASPART) SLIDING SCALE G... ACHS SC 04/09/17 07:00 05/09/17 06:59 04/09/17 12:15 1 UNITS Sodium Chloride 1,000 ml @ 80 mls/hr [id number] IV 04/09/17 06:00 05/09/17 05:59 04/09/17 06:21 80 MLS/HR Glucose (Glucose 40% Gel) 15-30 GRAMS 15 GRAMS... UD PRN PO 04/09/17 06:00 05/09/17 05:59 Glucose (Glucose Chew Tab) 4-8 Tablets 4 Tabl... UD PRN PO 04/09/17 06:00 05/09/17 05:59 Dextrose (Dextrose 50% 50ML Syringe) 25-50ML OF 50% DW IV FOR... UD PRN IV 04/09/17 06:00 05/09/17 05:59 Glucagon (Glucagon Inj) 1 mg UD PRN SQ 04/09/17 06:00 05/09/17 05:59 Objective Vital Signs Date Time Temp Pulse Resp B/P (MAP) Pulse Ox O2 Delivery O2 Flow Rate FiO2 04/09/17 15:04 36.5 76 20 165/95 (118) 92 Nasal Cannula 2.0 04/09/17 12:00 Nasal Cannula 2.0 04/09/17 11:35 37.0 110 20 166/83 (110) 91 Nasal Cannula 2.0 175/71 (105) 04/09/17 08:00 Nasal Cannula 2.0 04/09/17 07:24 36.8 80 22 155/82 (106) 93 Room Air 04/09/17 04:49 36.5 74 18 168/86 99 Nasal Cannula 2.0 04/09/17 04:04 63 20 124/68 96 Room Air 04/09/17 03:00 67 20 147/75 96 Nasal Cannula 2.0 04/09/17 02:08 56 04/09/17 02:03 59 18 141/85 99 Nasal Cannula 2.0 04/08/17 23:28 63 22 137/76 100 Nasal Cannula 2.0 04/08/17 23:00 53 20 153/73 96 Room Air 04/08/17 22:42 52 20 131/73 94 Room Air 04/08/17 22:37 93 Room Air 04/08/17 22:23 54 04/08/17 22:21 61 04/08/17 22:12 36.4 64 20 145/67 98 Room Air Physical Exam General Appearance: WD/WN, no apparent distress Eyes: sclerae normal, + pertinent finding (Left sided facial droop) Respiratory/Chest: chest non-tender, lungs clear, normal breath sounds Cardiovascular: regular rate, rhythm, no edema, no gallop Abdomen: normal bowel sounds, non tender, soft Extremities: non-tender, no calf tenderness Neurologic/Psychiatric: alert, normal mood/affect, oriented x 3, + pertinent finding (Slurred Speech) Laboratory Results Results Past 24 Hours Test 04/08/17 22:21 04/08/17 22:29 04/08/17 22:32 04/08/17 22:38 Range/Units Bedside Glucose 270 70-99 mg/dl Bedside Prothrombin Time INR 1.0 0.9-1.1 White Blood Count 14.34 4.8-10.8 K/uL Red Blood Count 4.02 4.7-6.1 M/uL Hemoglobin 12.1 14.0-18.0 g/dL Hematocrit 36.5 42-52 % Mean Corpuscular Volume 90.8 80-100 fL Mean Corpuscular Hemoglobin 30.1 25-34 pg Mean Corpuscular Hemoglobin Concent 33.2 32-36 g/dl Platelet Count 315 130-400 K/uL Mean Platelet Volume 11.4 7.4-10.4 fL Neutrophils (%) (Auto) 80.7 % Lymphocytes (%) (Auto) 8.9 % Monocytes (%) (Auto) 6.4 % Eosinophils (%) (Auto) 3.1 % Basophils (%) (Auto) 0.4 % Neutrophils # (Auto) 11.57 1.4-6.5 K/uL Lymphocytes # (Auto) 1.27 1.2-3.4 K/uL Monocytes # (Auto) 0.92 0.11-0.59 K/uL Eosinophils # (Auto) 0.45 0-0.5 K/uL Basophils # (Auto) 0.06 0-0.2 K/uL RDW Standard Deviation 45.1 36.4-46.3 fL RDW Coefficient of Variation 13.7 11.5-14.5 % Immature Granulocyte % (Auto) 0.5 % Immature Granulocyte # (Auto) 0.07 0.00-0.02 K/uL Prothrombin Time 10.7 9.0-12.0 SECONDS Prothromb Time International Ratio 1.0 0.9-1.1 Activated Partial Thromboplast Time 25.0 21.0-31.0 SECONDS Partial Thromboplastin Ratio 1.0 Sodium Level 135 136-145 mmol/L Potassium Level 4.9 3.5-5.1 mmol/L Chloride Level 99 98-107 mmol/L Carbon Dioxide Level 28 21-32 mmol/L Anion Gap 8.0 20.0 16-25 mmol/L Blood Urea Nitrogen 18 7-18 mg/dl Creatinine 1.70 0.60-1.40 mg/dl Est Creatinine Clear Calc Drug Dose 34.3 ml/min Estimated GFR () 41.1 Estimated GFR (Non- 35.5 BUN/Creatinine Ratio 10.6 10-20 Random Glucose 296 70-99 mg/dl Calcium Level 9.4 8.5-10.1 mg/dl Magnesium Level 1.7 1.8-2.4 mg/dl Total Creatine Kinase 36 39-308 U/L Creatine Kinase MB < 0.5 0.5-3.6 ng/ml Creatine Kinase MB Ratio 0-3.0 Troponin I 0.044 0-0.045 ng/ml Bedside Hemoglobin 12.9 14.0-18.0 g/dl Bedside Hematocrit 38 42-52 % Bedside Sodium 137 135-144 mEq/L Bedside Potassium 5.0 3.3-5.0 mEq/L Bedside Chloride 97 101-112 mEq/L Bedside Total CO2 26 24-31 mEq/l Bedside Blood Urea Nitrogen 18 7-18 mg/dl Bedside Creatinine 1.7 0.6-1.3 mg/dl Bedside Glucose (other) 301 70-99 mg/dl Bedside Ionized Calcium (Lucia) 1.14 1.12-1.32 mmol/l Test 04/09/17 06:00 04/09/17 06:34 04/09/17 10:08 04/09/17 11:34 Range/Units White Blood Count 8.31 4.8-10.8 K/uL Red Blood Count 3.77 4.7-6.1 M/uL Hemoglobin 10.8 14.0-18.0 g/dL Hematocrit 34.6 42-52 % Mean Corpuscular Volume 91.8 80-100 fL Mean Corpuscular Hemoglobin 28.6 25-34 pg Mean Corpuscular Hemoglobin Concent 31.2 32-36 g/dl RDW Standard Deviation 45.9 36.4-46.3 fL RDW Coefficient of Variation 13.8 11.5-14.5 % Platelet Count 246 130-400 K/uL Mean Platelet Volume 11.7 7.4-10.4 fL Sodium Level 138 136-145 mmol/L Potassium Level 4.7 3.5-5.1 mmol/L Chloride Level 103 98-107 mmol/L Carbon Dioxide Level 28 21-32 mmol/L Anion Gap 7.0 3-11 mmol/L Blood Urea Nitrogen 22 7-18 mg/dl Creatinine 1.80 0.60-1.40 mg/dl Est Creatinine Clear Calc Drug Dose 29.9 ml/min Estimated GFR () 38.4 Estimated GFR (Non- 33.1 BUN/Creatinine Ratio 12.3 10-20 Random Glucose 211 70-99 mg/dl Calcium Level 8.3 8.5-10.1 mg/dl Bedside Glucose 190 190 70-99 mg/dl Estimated Average Glucose 171 mg/dl Hemoglobin A1c 7.6 4.5-5.6 % Troponin I 0.036 0-0.045 ng/ml Assessment and Plan 86-year-old male with a past medical history of hypertension, diabetes, GERD, atrial fibrillation presented to the ER with complaints of dizziness and strokelike symptoms which started 3 hours prior to arrival. Head CT and telemetry stroke consult with [facility] were obtained and it was determined that he was not a candidate for TPA. 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 - Continue aspirin, statin - Neurology Consultation - Start Anticoagulant - Maintain average SBP around 140 for time being and slowly reduced blood pressure over the next few days - PT/OT - made initial evaluation this morning - Speech Therapy Recommendations - Pureed diet with THIN liquids - Aspiration precautions: SUPERVISION WITH ORAL INTAKE; fully upright with repositioning as needed; straws okay to try - Mouth care q shift to minimize oral bacteria pt may aspirate in saliva - HAT AND CAP DRYING ROOM ATTENDANT f/u for speech-language deficits and for dysphagia and diet advancement. MAY need VFSS. - Pt will likely benefit from acute stroke rehabilitation at d/c from acute care 2) Atrial fibrillation - Rate control with metoprolol and diltiazem - Eliquis ordered for tomorrow AM, 2.5mg BID - [id number] of 6, 9.7% annual risk of stroke - Echo: EF 55-60%, Normal LV function, Mild MR and TR - Troponin Trending down 0.044 --> 0.036 3) Acute kidney injury - Creatinine at 1.7 - Likely 2/2 dehydration - Monitor creatinine 4) Hypertension - Holding home Zestril to allow for permissive hypertension 5) Diabetes: - HbA1c - 7.6 - Home Metformin held - Insulin sliding scale 6) DVT prophylaxis: - SCDs - Start Eliquis tomorrow 7) Code Status - Full Resuscitation Resident Physician Supervision Note: I interviewed and examined the patient. Discussed with Dr. Varela and agree with findings and plan as documented in the note. Any exceptions or clarifications are listed here: None Documented By: Claude Johns no new complaints. awaiting formal speech input. OK w going to [facility] if able to be arranged. vitals noted nad facial droop and tongue deviation noted CVA - likely embolic from afib - eliquis. continue asa for evidence of small vessel disease. otherwise as above. hopefully to [facility] for rehab given baseline appears to have been high, hopefully can rehab to independence again elevated creatinine - unclear if SUNSHINE or CKD -- last creatinine we have record of was lower but also was years ago - try to obtain [facility] otherwise as above Resident Tracking Resident Involvement: Resident Care Provided Care Provided: Adult Hospital Medicine
[2017-04-09 19:21] VITALS: BP 130/70; PULSE 78; TEMP 36.9; O2SAT 91
[2017-04-09] MEDS: PRAVASTATIN SOD 40 MG TAB PO SCH (19:54)
[2017-04-09 21:04] LABS: URINE APPEARANCE CLEAR (CLEAR); URINE BILIRUBIN NEG (NEG); URINE COLOR YELLOW; URINE EPITHELIAL CELL AUTO 0-5 /lpf (0-5); URINE NITRITE POS (NEG); URINE PH 5.5 (4.5-7.5); URINE SPECIFIC GRAVITY 1.019 (1.000-1.030); UROBILINOGEN NEG (NEG); ZZUR CULT IF INDIC CLEAN CATCH YES
[2017-04-09 21:07] LABS: MANUAL MICROSCOPIC REQUIRED? NO; REVIEW REQ? YES
[2017-04-09 23:37] VITALS: BP 170/76; PULSE 82; TEMP 36.9; O2SAT 93
[2017-04-10] VITALS (9 sets, daily range): BP systolic 123–189; BP diastolic 76–94; PULSE 56–92; TEMP 36.8–37.1; O2SAT 94–98
[2017-04-10] MEDS ORDERED: NURSING VERBAL MED ORDER ONE (04:00)
[2017-04-10] MEDS ORDERED: FUROSEMIDE INJ 40 MG in SYRINGE 0 ML IV STA (04:00)
--- NOTE | 2017-04-10 07:18 | DIAGNOSTIC IMAGING REPORT ---
SINGLE VIEW CHEST CLINICAL HISTORY: Dyspnea. FINDINGS: An AP, portable, upright chest radiograph is compared to study dated 04/08/2017. The examination is degraded by portable technique and patient rotation. The heart is enlarged and there is atherosclerotic calcification of the thoracic aorta. There is pulmonary vascular congestion and interstitial edema. Trace pleural effusions are suspected. Left basilar opacities likely represent atelectasis. No pneumothorax is seen. The skeletal structures are osteopenic. The bony thorax is grossly intact. A right shoulder arthroplasty is in place. IMPRESSION: Cardiomegaly with evidence of congestive failure and interstitial edema. This has worsened from 04/08/2017. Electronically signed by: Javier Moreno M.D. 04/10/2017 7:17 AM Dictated Date/Time: 04/10/2017 7:16 AM
[2017-04-10 07:32] LABS: BUN/CREATININE RATIO 16.8 (10-20); CALCIUM 9.3 mg/dl (8.5-10.1); CREATININE 1.3 mg/dl (0.60-1.40); POTASSIUM 4.2 mmol/L (3.5-5.1)
[2017-04-10 07:35] LABS: CHOLESTEROL/HDL RATIO 3.2
[2017-04-10 07:47] LABS: BASO % 0.2 %; BASO ABS # 0.02 K/uL (0-0.2); COMPLETE YES; EOS % 0.3 %; HEMATOCRIT 38.5 % (42-52); IG% 0.5 %; LYMPH % 7.1 %; LYMPH ABS # 0.75 K/uL (1.2-3.4); MEAN CELL VOLUME 91.7 fL (80-100); MEAN CORPUSCULAR HEMOGLOBIN 29.8 pg (25-34); MEAN CORPUSCULAR HGB CONC 32.5 g/dl (32-36); MEAN PLATELET VOLUME 12.6 fL (7.4-10.4); MONO % 8.1 %; NEUT % 83.8 %; PLATELET COUNT 271 K/uL (130-400); PLT ESTIMATE NORMAL; WHITE BLOOD COUNT 10.63 K/uL (4.8-10.8)
[2017-04-10] MEDS: APIXABAN 2.5 MG TAB PO SCH ×3 (08:39→19:49)
[2017-04-10] MEDS: ASPIRIN 81 MG ECTAB PO SCH (08:39)
[2017-04-10] MEDS: VERAPAMIL HCL 240 MG TABCR PO SCH (08:42)
[2017-04-10] MEDS: METOPROLOL TARTRATE 50 MG TAB PO SCH ×2 (08:42→19:52)
[2017-04-10] MEDS: INSULIN ASPART 100 UNITS/ML 3 ML PEN SC SCH ×4 (08:49→19:55)
--- NOTE | 2017-04-10 09:48 | Clinical Documentation Query ---
ZAHEER Null : CLINICAL DOCUMENTATION QUERY Patient is an 86 year old male admitted for acute cardioembolic left posterior frontal stroke. Early this a.m. (04/10), physician was notified of increased SOB, hypertension. Patient was ordered stat IV Lasix and for IVF to be discontinued. Chest radiograph demonstrated "Cardiomegaly with evidence of congestive failure and interstitial edema. This has worsened from 04/08/2017". He is being monitored on telemetry with I/O, daily weights, echocardiogram, and serial labs. There is no provider documentation regarding this occurence. Please clarify as clinically appropriate. Thank you. In your clinical opinion is this patient being managed for: ( ) Acute diastolic CHF ( ) Not Agree ( ) Other explanation of clinical findings (Please Explain) ( ) Unable to determine (Please Define) ( ) Need to Discuss The medical record reflects the following clinical findings, treatment, and risk factors. Clinical Indicators: As above Treatment:Patient was ordered stat IV Lasix and for IVF to be discontinued. Chest radiograph Risk Factors: Age, IVF administration, hypertension Please clarify and document your clinical opinion in the progress notes and discharge summary. Terms such as "probable", "suspected", "likely", "questionable", "possible", or "still to be ruled out" are acceptable. IF IN AGREEMENT, YOU MUST DOCUMENT ABOVE DIAGNOSTIC STATEMENT IN DAILY PROGRESS NOTES AND DISCHARGE SUMMARY. This document is not part of the patient's record. Thank You, Cosmo Lew, RN [phone]
[2017-04-10] MEDS ORDERED: LISINOPRIL 20 MG TAB PO ONE (10:00)
--- NOTE | 2017-04-10 11:53 | DIAGNOSTIC IMAGING REPORT ---
VIDEO SWALLOW HISTORY: Stroke like symptoms. Difficulty swallowing. TECHNIQUE: Video fluoroscopic evaluation of swallowing was performed in the AP and lateral projections by the speech pathology staff. The patient is fed nectar-thick and thin liquid barium, a barium coated wafer, and barium pudding. FLUOROSCOPY TIME: 2.9 minutes. A cine loop submitted. COMPARISON STUDY: None. FINDINGS: There is normal hyoid excursion and epiglottic deflection. Premature spillover into the hypopharynx. There is mild to moderate vallecular residue. This results in trace aspiration between swallows with the thin liquid barium. IMPRESSION: 1. Trace aspiration with the thin liquid barium due to the vallecula residue. 2. Please see the speech pathologist report for detailed findings and recommendations. Electronically signed by: Med Rivas M.D. 04/10/2017 11:52 AM Dictated Date/Time: 04/10/2017 11:50 AM
[2017-04-10] MEDS: PRAVASTATIN SOD 40 MG TAB PO SCH (19:49)
--- NOTE | 2017-04-10 21:54 | Family Medicine Progress Note ---
Progress Note Date of Service Apr 10, 2017. Subjective Pt evaluation today including: conversation w/ patient, physical exam, chart review, lab review, review of studies Pain: No pain reported this morning Voiding: no voiding problems, no incontinence Patient is resting comfortably in bed this morning with his speech being much more comprehensible. He appears to be more alert and his facial droop appears to have improved. He denies any headache, lightheadedness, or any other acute complaints. He also denies any shortness of breath this morning. Constitutional: No fever, No chills, No sweats, No fatigue Respiratory: No cough, No sputum, No wheezing, No shortness of breath Cardiovascular: No chest pain, No palpitations Abdomen: No pain, No nausea, No vomiting Male : + dysuria Neurologic: + problem reported (Denies headache), No paralysis, No weakness , No numbness/tingling Medications Current Inpatient Medications Medications (Trade) Dose Ordered Sig/Maritza Route Start Time Stop Time Status Last Admin Dose Admin Gadobutrol (Gadavist) 8.5 mmol UD PRN IV 04/09/17 03:15 04/13/17 03:14 Miscellaneous Information (Pharmacist Discharge Med Rec Consult) 1 ea UD PRN N/A 04/09/17 03:45 05/09/17 03:44 Al Hydrox/Mg Hydrox/Simethicone (Maalox Max Susp) 15 ml Q4H PRN PO 04/09/17 03:45 05/09/17 03:44 Ondansetron HCl (Zofran Inj) 4 mg Q6H PRN IV 04/09/17 03:45 05/09/17 03:44 Nitroglycerin (Nitrostat Tab) 0.4 mg UD PRN SL 04/09/17 03:45 05/09/17 03:44 Polyethylene (Miralax Powder Packet) 17 gm DAILY PRN PO 04/09/17 03:45 05/09/17 03:44 04/10/17 08:38 17 GM Aspirin (Ecotrin Tab) 81 mg DAILY PO 04/09/17 09:00 05/09/17 08:59 04/10/17 08:39 81 MG Metoprolol Tartrate (Lopressor Tab) 50 mg BID PO 04/09/17 09:00 05/09/17 08:59 04/10/17 19:52 50 MG Pravastatin Sodium (Pravachol Tab) 40 mg HS PO 04/09/17 21:00 05/09/17 20:59 04/10/17 19:49 40 MG Verapamil HCl (Calan-Sr Tab) 240 mg QAM PO 04/09/17 09:00 05/09/17 08:59 04/10/17 08:42 240 MG Insulin Aspart (novoLOG ASPART) SLIDING SCALE G... ACHS SC 04/09/17 07:00 05/09/17 06:59 04/10/17 19:55 1 UNITS Glucose (Glucose 40% Gel) 15-30 GRAMS 15 GRAMS... UD PRN PO 04/09/17 06:00 05/09/17 05:59 Glucose (Glucose Chew Tab) 4-8 Tablets 4 Tabl... UD PRN PO 04/09/17 06:00 05/09/17 05:59 Dextrose (Dextrose 50% 50ML Syringe) 25-50ML OF 50% DW IV FOR... UD PRN IV 04/09/17 06:00 05/09/17 05:59 Glucagon (Glucagon Inj) 1 mg UD PRN SQ 04/09/17 06:00 05/09/17 05:59 Apixaban (Eliquis Tab) 2.5 mg BID PO 04/10/17 08:00 05/10/17 07:59 04/10/17 19:49 2.5 MG Objective Vital Signs Date Time Temp Pulse Resp B/P (MAP) Pulse Ox O2 Delivery O2 Flow Rate FiO2 04/10/17 20:00 Nasal Cannula 1.0 94 04/10/17 18:43 Nasal Cannula 2.0 04/10/17 18:30 36.8 80 18 151/76 (101) 98 2.0 04/10/17 18:20 37.1 66 18 96 2.0 04/10/17 16:00 Nasal Cannula 2.0 04/10/17 15:12 37.1 66 18 123/77 (92) 96 Nasal Cannula 2.0 04/10/17 12:00 Nasal Cannula 2.0 04/10/17 11:57 37.0 56 20 157/87 (110) 96 Nasal Cannula 2.0 04/10/17 09:30 80 147/84 (105) 04/10/17 08:00 95 Nasal Cannula 2.0 04/10/17 07:10 36.9 89 21 189/87 (121) 95 Room Air 2.0 04/10/17 04:00 Nasal Cannula 2.0 04/10/17 03:54 36.8 92 22 180/94 (122) 94 Nasal Cannula 2.0 04/09/17 23:59 Nasal Cannula 2.0 04/09/17 23:37 36.9 82 20 170/76 (107) 93 Nasal Cannula 2.0 Physical Exam General Appearance: WD/WN, no apparent distress Eyes: normal inspection, sclerae normal Respiratory/Chest: chest non-tender, lungs clear, normal breath sounds Cardiovascular: regular rate, rhythm, no edema, no gallop Abdomen: normal bowel sounds, non tender, soft Extremities: normal range of motion, non-tender, no calf tenderness Neurologic/Psychiatric: alert, normal mood/affect, oriented x 3, + facial droop (left sided. Significantly improved from last week. ), + pertinent finding (At rest continued left sided facial droop with tongue deviated to the left. Finger to nose test within normal limits.) Laboratory Results Results Past 24 Hours Test 04/10/17 05:59 04/10/17 06:42 04/10/17 11:21 04/10/17 16:12 Range/Units White Blood Count 10.63 4.8-10.8 K/uL Red Blood Count 4.20 4.7-6.1 M/uL Hemoglobin 12.5 14.0-18.0 g/dL Hematocrit 38.5 42-52 % Mean Corpuscular Volume 91.7 80-100 fL Mean Corpuscular Hemoglobin 29.8 25-34 pg Mean Corpuscular Hemoglobin Concent 32.5 32-36 g/dl Platelet Count 271 130-400 K/uL Mean Platelet Volume 12.6 7.4-10.4 fL Neutrophils (%) (Auto) 83.8 % Lymphocytes (%) (Auto) 7.1 % Monocytes (%) (Auto) 8.1 % Eosinophils (%) (Auto) 0.3 % Basophils (%) (Auto) 0.2 % Neutrophils # (Auto) 8.92 1.4-6.5 K/uL Lymphocytes # (Auto) 0.75 1.2-3.4 K/uL Monocytes # (Auto) 0.86 0.11-0.59 K/uL Eosinophils # (Auto) 0.03 0-0.5 K/uL Basophils # (Auto) 0.02 0-0.2 K/uL RDW Standard Deviation 46.4 36.4-46.3 fL RDW Coefficient of Variation 13.8 11.5-14.5 % Immature Granulocyte % (Auto) 0.5 % Immature Granulocyte # (Auto) 0.05 0.00-0.02 K/uL Platelet Estimate NORMAL Sodium Level 137 136-145 mmol/L Potassium Level 4.2 3.5-5.1 mmol/L Chloride Level 102 98-107 mmol/L Carbon Dioxide Level 27 21-32 mmol/L Anion Gap 8.0 3-11 mmol/L Blood Urea Nitrogen 22 7-18 mg/dl Creatinine 1.30 0.60-1.40 mg/dl Est Creatinine Clear Calc Drug Dose 41.3 ml/min Estimated GFR () 56.9 Estimated GFR (Non- 49.1 BUN/Creatinine Ratio 16.8 10-20 Random Glucose 207 70-99 mg/dl Calcium Level 9.3 8.5-10.1 mg/dl Triglycerides Level 109 0-150 mg/dl Cholesterol Level 133 0-200 mg/dl HDL Cholesterol 42 mg/dl LDL Cholesterol, Calculated 69 mg/dl VLDL Cholesterol, Calculated 22 mg/dl Cholesterol/HDL Ratio 3.2 Bedside Glucose 216 228 245 70-99 mg/dl Test 04/10/17 16:14 04/10/17 19:52 Range/Units Bedside Glucose 238 183 70-99 mg/dl Assessment and Plan 86-year-old male with a past medical history of hypertension, diabetes, GERD, atrial fibrillation presented to the ER with complaints of dizziness and strokelike symptoms which started 3 hours prior to arrival. Head CT and telemetry stroke consult with [facility] were obtained and it was determined that he was not a candidate for TPA. 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 - Continue aspirin, statin - Neurology Consultation - Start Anticoagulant - Maintain average SBP around 140 for time being and slowly reduced blood pressure over the next few days - PT/OT - Requires intensive therapy - Video Swallow Study: Trace aspiration with the thin liquid barium due to the vallecula residue. - Speech Therapy Recommendations - Moist pureed - Aspiration precautions: FULLY UPRIGHT for oral intake, straws okay, ENCOURAGE FREQUENT DOUBLE SWALLOWS AND FREQUENT THROAT CLEARING AND RE- SWALLOWING; mouth care AFTER meals - Pt will benefit from ENFORCEMENT OFFICER f/u for dyphagia AND dysarthria - Pt would benefit from acute stroke rehabilitation at d/c- Pureed diet with THIN liquids 2) Atrial fibrillation - Rate control with metoprolol and diltiazem - Eliquis 2.5mg BID - [id number] of 6, 9.7% annual risk of stroke - Echo: EF 55-60%, Normal LV function, Mild MR and TR - Troponin stabilized 0.044 --> 0.036 --> 0.049, positive most likely secondary to stress and tachycardia 3) Acute kidney injury - Creatinine improved today 1.7 --> 1.3 - Likely 2/2 dehydration - Monitor creatinine 4) Hypertension - Resume home lisinopril 20mg qAM 5) Diabetes: - HbA1c - 7.6 - Home Metformin held - Insulin sliding scale 6) DVT prophylaxis: - SCDs - Eliquis 7) Code Status - Full Resuscitation 8) Disposition - Plan to discharge to [facility] Resident Physician Supervision Note: I interviewed and examined the patient. Discussed with Dr. Varela and agree with findings and plan as documented in the note. Any exceptions or clarifications are listed here: None Documented By: Claude Johns feeling a little better speech a little more clear. vitals noted nad breahting unlabored ongoing facial droop and slurred speech but somewhat improved CVA due to afib - stable, for rehab otherwise as above Resident Tracking Resident Involvement: Resident Care Provided Care Provided: Adult Hospital Medicine
[2017-04-11 00:01] VITALS: BP 155/78; PULSE 79; TEMP 36.5; O2SAT 93
[2017-04-11 06:41] LABS: BASO % 0.5 %; BASO ABS # 0.04 K/uL (0-0.2); COMPLETE YES; EOS % 1.5 %; HEMATOCRIT 34.9 % (42-52); IG% 0.4 %; LYMPH % 12.3 %; LYMPH ABS # 1.05 K/uL (1.2-3.4); MEAN CELL VOLUME 91.8 fL (80-100); MEAN CORPUSCULAR HGB CONC 32.7 g/dl (32-36); MEAN PLATELET VOLUME 11.9 fL (7.4-10.4); MONO % 10.8 %; NEUT % 74.5 %; PLATELET COUNT 223 K/uL (130-400); WHITE BLOOD COUNT 8.53 K/uL (4.8-10.8)
[2017-04-11 07:05] LABS: BUN/CREATININE RATIO 24.5 (10-20); CALCIUM 8.7 mg/dl (8.5-10.1); CREATININE 1.3 mg/dl (0.60-1.40); POTASSIUM 3.9 mmol/L (3.5-5.1)
[2017-04-11 07:18] VITALS: BP 135/76; PULSE 73; TEMP 36.2; O2SAT 90
[2017-04-11] MEDS: APIXABAN 2.5 MG TAB PO SCH (08:23)
[2017-04-11] MEDS: ASPIRIN 81 MG ECTAB PO SCH (08:23)
[2017-04-11] MEDS: VERAPAMIL HCL 240 MG TABCR PO SCH (08:23)
[2017-04-11] MEDS: METOPROLOL TARTRATE 50 MG TAB PO SCH (08:23)
[2017-04-11] MEDS: INSULIN ASPART 100 UNITS/ML 3 ML PEN SC SCH ×2 (08:40→12:24)
--- NOTE | 2017-04-11 11:25 | Discharge Instructions ---
Discharge Instructions Date of Service Apr 11, 2017. Admission Reason for Admission: Stroke Like Symptoms Discharge Discharge Diagnosis / Problem: Acute Stroke Discharge Goals Goal(s): Decrease discomfort, Improve function, Therapeutic intervention Activity Recommendations Activity Level: Assistance Required Therapies: Physical Therapy, Occupational Therapy, Speech Therapy . Additional Information Patient informed of condition: Yes Advance Directives: Yes DNR: Yes Level of Care: Acute Rehab Communicable Disease: No Prognosis: Improving Souza Catheter: No Instructions / Follow-Up Instructions / Follow-Up 86-year-old male with a past medical history of hypertension, diabetes, GERD, atrial fibrillation presented to the ER with complaints of dizziness and strokelike symptoms which started 3 hours prior to arrival. MRI head revealed acute stroke of the left posterior frontal lobe. Telemetry stroke consult with [facility] farhat obtained and it was determined that he was not a candidate for TPA. Patient started on anticoagulation, aspirin, and statin therapy. The patient initially had left sided facial droop and significant dysarthria. The patients cranial nerve dysfunction has progressively improved over his admission although he is still having residual neurological symptoms. He will require intensive PT/OT and Speech therapy and will be discharged to [facility] Instructions: - Resume Home Medications - Take 2.5mg Eliquis by mouth twice daily as a blood thinner - Held patient Lisinopril and Lasix doses today but RESUME BOTH TOMORROW - Patient had positive urine culture that grew Staph species. Most likely a contaminant because patient afebrile and asymptomatic. 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 - Continue aspirin, statin - Neurology Consultation - Start Anticoagulant - Maintain average SBP around 140 for time being and slowly reduced blood pressure over the next few days - PT/OT - Requires intensive therapy - Video Swallow Study: Trace aspiration with the thin liquid barium due to the vallecula residue. - Speech Therapy Recommendations - Moist pureed - Aspiration precautions: FULLY UPRIGHT for oral intake, straws okay, ENCOURAGE FREQUENT DOUBLE SWALLOWS AND FREQUENT THROAT CLEARING AND RE- SWALLOWING; mouth care AFTER meals - Pt will benefit from RESIDENTIAL PROGRAM WORKER f/u for dyphagia AND dysarthria - Pt would benefit from acute stroke rehabilitation at d/c- Pureed diet with THIN liquids 2) Atrial fibrillation - Rate control with metoprolol and diltiazem - Eliquis 2.5mg BID - [id number] of 6, 9.7% annual risk of stroke - Echo: EF 55-60%, Normal LV function, Mild MR and TR - Troponin stabilized 0.044 --> 0.036 --> 0.049, positive most likely secondary to stress and tachycardia 3) Acute kidney injury - Creatinine improved today 1.7 --> 1.3 - Likely 2/2 dehydration - Monitor creatinine 4) Hypertension - Resume home Lisinopril 20mg qAM 5) Diabetes: - HbA1c - 7.6 - Home Metformin held - Insulin sliding scale 6) DVT prophylaxis: - SCDs - Eliquis 7) Code Status - Full Resuscitation 8) Disposition - [facility] Diet Patient's current hospital diet: Diabetes Type 2 Diet Discharge Diet Recommended Diet: AHA Diet (Heart Healthy), Diabetes Type 2 Diet Diet Texture: Pureed (blended smooth) Pending Studies Studies pending at discharge: no Physician Orders On Transfer Special Precautions: Speech T - Moist pureed - Aspiration precautions: FULLY UPRIGHT for oral intake, straws okay, ENCOURAGE FREQUENT DOUBLE SWALLOWS AND FREQUENT THROAT CLEARING AND RE- SWALLOWING; mouth care AFTER meals - Pt will benefit from RESIDENTIAL PROGRAM WORKER f/u for dyphagia AND dysarthria - Pt would benefit from acute stroke rehabilitation at d/c- Pureed diet with THIN liquids Dressing Changes: None IV Therapy: None Vital Signs: Routine Weigh: Routine Additional Orders: None Laboratory Results Hemoglobin A1c Test 04/09/17 10:08 Range/Units Estimated Average Glucose 171 mg/dl Hemoglobin A1c 7.6 H 4.5-5.6 % Lipid Panel Test 04/10/17 05:59 Range/Units Triglycerides Level 109 0-150 mg/dl Cholesterol Level 133 0-200 mg/dl HDL Cholesterol 42 mg/dl Cholesterol/HDL Ratio 3.2 LDL Cholesterol, Calculated 69 mg/dl Medical Emergencies . Who to Call and When: Medical Emergencies: If at any time you feel your situation is an emergency, please call 911 immediately. . Non-Emergent Contact Non-Emergency issues call your: Primary Care Provider . . "Provider Documentation" section prepared by Natalio Varela. . Core Measure Problem Core Measures: Stroke Stroke Core Measures Reason no t-PA for Stroke: Treatment not indicated Reason no antithrom by day 2: Treatment provided - N/A Reason no antithrom at D/C: Treatment provided - N/A Reason no statin at D/C: Treatment provided - N/A Reason no anticoag w/a fib: Treatment provided - N/A
[2017-04-11 11:40] VITALS: O2SAT 96
[2017-04-11 12:55] VITALS: BP 135/76; PULSE 73; TEMP 36.2
[2017-04-11 13:17] VITALS: O2SAT 92
[2017-04-11] MEDS ORDERED: ELQ25 PO (13:20)
--- NOTE | 2017-04-12 21:06 | Discharge Summary ---
Discharge Summary Date of Service Apr 12, 2017. (Natalio Varela MD) Discharge Summary Admission Date: Apr 09, 2017 at 03:50 Discharge Date: Apr 11, 2017 Discharge Disposition: Rehab Principal Diagnosis: Stroke Immunizations: Have You Had Influenza Vaccine: Yes Influenza Vaccine Date: Apr 27, 2009 History of Tetanus Vaccine?: Unknown History of Pneumococcal: Yes Pneumococcal Date: Apr 27, 2007 History of Hepatitis B Vaccine: Unknown (Natalio Varela MD) Discharge Exam Review of Systems: Constitutional: No fever, No chills, No fatigue Respiratory: No cough, No shortness of breath Cardiovascular: No chest pain, No palpitations Abdomen: No pain, No nausea, No vomiting, No diarrhea, No constipation Neurologic: No memory loss, No balance problems Physical Exam: General Appearance: WD/WN, no apparent distress Eyes: normal inspection, PERRL, EOMI, sclerae normal Respiratory/Chest: chest non-tender, lungs clear, normal breath sounds Cardiovascular: + irregularly irregular Extremities: no calf tenderness, + pedal edema (+1) Neurologic/Psychiatric: alert, normal mood/affect, oriented x 3, + facial droop (left sided, improved from yesterday specifically eyelid opening on left side), + pertinent finding (improved speech comprehensibility) (Natalio Varela MD) Hospital Course 86-year-old male with a past medical history of hypertension, diabetes, GERD, atrial fibrillation presented to the ER with complaints of dizziness and strokelike symptoms which started 3 hours prior to arrival. MRI head revealed acute stroke of the left posterior frontal lobe. Telemetry stroke consult with [facility] was obtained and it was determined that he was not a candidate for TPA. Patient was started on anticoagulation, aspirin, and statin therapy. The patient initially had left sided facial droop and significant dysarthria. The patients cranial nerve dysfunction has progressively improved over his admission although he is still having residual neurological symptoms including dysarthria in addition to slight swallowing difficulty for which he will need intensive speech therapy. He will require intensive PT/OT and Speech therapy and will be discharged to [facility]. Instructions: - Resume Home Medications - Take 2.5mg Eliquis by mouth twice daily as a blood thinner - Held patient Lisinopril and Lasix doses today but RESUME BOTH TOMORROW - Patient had positive urine culture that grew Staph species. Most likely a contaminant because patient afebrile and asymptomatic. 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 - Continue aspirin, statin - PT/OT - Requires intensive therapy - Video Swallow Study: Trace aspiration with the thin liquid barium due to the vallecula residue. - Speech Therapy Recommendations - Moist pureed - Aspiration precautions: FULLY UPRIGHT for oral intake, straws okay, ENCOURAGE FREQUENT DOUBLE SWALLOWS AND FREQUENT THROAT CLEARING AND RE- SWALLOWING; mouth care AFTER meals - Pt will benefit from TEACHER RESOURCE f/u for dyphagia AND dysarthria - Pt would benefit from acute stroke rehabilitation at d/c- Pureed diet with THIN liquids 2) Atrial fibrillation - Rate control with metoprolol and diltiazem - Eliquis 2.5mg BID - [id number] of 6, 9.7% annual risk of stroke - Echo: EF 55-60%, Normal LV function, Mild MR and TR - Troponin stabilized 0.044 --> 0.036 --> 0.049, positive most likely secondary to stress and tachycardia 3) Acute kidney injury - Creatinine improved today 1.7 --> 1.3 - Likely 2/2 dehydration - Monitor creatinine 4) Hypertension - Resume home Lisinopril 20mg qAM on discharge 5) Diabetes: - HbA1c - 7.6 - Insulin sliding scale - Resumed Metformin on discharge 6) DVT prophylaxis: - SCDs - Eliquis 7) Code Status - Full Resuscitation Total Time Spent: Greater than 30 minutes This includes examination of the patient, discharge planning, medication reconciliation, and communication with other providers. (Natalio Varela MD) Resident Physician Supervision Note: I interviewed and examined the patient. Discussed with Dr. Varela and agree with findings and plan as documented in the note. Any exceptions or clarifications are listed here: None Documented By: Claude Nat speech improving facial droop improving set for HSR today vitals noted nad breathing unlabored facial droop tongue dev and slurred speech persist but improving cva - embolic - anticoag acute on chronic diastolic chf treated w additional lasix x1 - now stable stable for HSR (Claude Johns, D.O.) Discharge Instructions Please refer to the electronic Patient Visit Report (Discharge Instructions) for additional information. (Natalio Varela MD) Additional Copies To [facility] Resident Tracking Resident Involvement: Resident Care Provided Care Provided: Adult Hospital Medicine (Natalio Vraela MD)
== END 2017-04-11 14:17 | DRG 65 ==
LOC: EDBD 22:02 → C.EDB 22:04 → C.2T 04-09 03:50 → ENRESERV 04-09 03:52 → C.4E 04-10 18:22
PROVIDERS: ADMIT Family Medicine; ATTEND Family Medicine
DX: I63.8 Other cerebral infarction (principal); N17.9 Acute kidney failure, unspecified; I48.91 Unspecified atrial fibrillation; E11.9 Type 2 diabetes mellitus without complications; D64.9 Anemia, unspecified; K21.9 Gastro-esophageal reflux disease without esophagitis; M10.9 Gout, unspecified; I10 Essential (primary) hypertension; Z66 Do not resuscitate; Z87.891 Personal history of nicotine dependence; Z79.84 Long term (current) use of oral hypoglycemic drugs; Z79.899 Other long term (current) drug therapy; Z79.82 Long term (current) use of aspirin

== ENCOUNTER 2017-04-17 10:43 | Observation (INO) | payer OTHER ==
[~2017-04-17] VITALS: Ht 177.8 cm; Wt 81.3 kg
[~2017-04-17 10:43] MED LIST changes: -APR25 PO; +ASCO-63 PO; +ELQ25 PO; +FERR324T PO; -PRLSR20 PO
[2017-04-17 11:33] LABS: BASO % 0.6 %; BASO ABS # 0.05 K/uL (0-0.2); COMPLETE YES; EOS % 3.2 %; HEMATOCRIT 39.2 % (42-52); IG% 0.3 %; LYMPH % 13.4 %; LYMPH ABS # 1.21 K/uL (1.2-3.4); MEAN CELL VOLUME 90.7 fL (80-100); MEAN CORPUSCULAR HEMOGLOBIN 28.9 pg (25-34); MEAN CORPUSCULAR HGB CONC 31.9 g/dl (32-36); MEAN PLATELET VOLUME 11.8 fL (7.4-10.4); MONO % 8.5 %; PLATELET COUNT 333 K/uL (130-400); RED BLOOD COUNT 4.32 M/uL (4.7-6.1); WHITE BLOOD COUNT 9.02 K/uL (4.8-10.8)
[2017-04-17 11:40] LABS: BUN/CREATININE RATIO 19.4 (10-20); CREATININE 1.3 mg/dl (0.60-1.40)
[2017-04-17 11:43] LABS: ALB/GLOB RATIO 0.9 (0.9-2)
[2017-04-17] MEDS ORDERED: GLIP5TAB3 PO (12:18)
[2017-04-17] MEDS ORDERED: DOCU1TAB6 PO (12:18)
[2017-04-17] MEDS ORDERED: NVLG (12:24)
[2017-04-17] MEDS ORDERED: SODIUM CHLORIDE 0.9% 500ML 500 ML IV STA (12:29)
--- NOTE | 2017-04-17 12:40 | DIAGNOSTIC IMAGING REPORT ---
CHEST ONE VIEW PORTABLE CLINICAL HISTORY: Weakness COMPARISON STUDY: 04/10/2017 FINDINGS: The heart remains enlarged. There is improving pulmonary vascular congestion and interstitial edema. There are residual left basal airspace opacities.[ IMPRESSION: Cardiomegaly and resolving interstitial edema. Persistent left basal airspace opacities, likely representing residual edema although an inflammatory process could appear similar Electronically signed by: Torito Hardin M.D. 04/17/2017 12:39 PM Dictated Date/Time: 04/17/2017 12:37 PM
[2017-04-17 13:22] LABS: PARTIAL THROMBOPLASTIN RATIO 1.1; PROTHROMBIN TIME (PATIENT) 11.1 SECONDS (9.0-12.0)
--- NOTE | 2017-04-17 13:32 | DIAGNOSTIC IMAGING REPORT ---
HEAD WITHOUT CONTRAST (CT) CLINICAL HISTORY: 86 years-old Male presenting with recent stroke w/ head bleed. TECHNIQUE: Multidetector CT imaging of the head was performed without the use of intravenous contrast. IV contrast: None. A dose lowering technique was used consistent with the principles of ALARA (as low as reasonably achievable). COMPARISON: 04/08/2017.. CT DOSE (mGy.cm): The estimated cumulative dose is 823.94 mGycm. FINDINGS: Picture Booker topogram: Unremarkable. Proportional ventricular and sulcal prominence, likely age-related parenchymal volume loss. Periventricular and subcortical white matter hypoattenuation, nonspecific but likely indicative of chronic small vessel ischemic change. Old lacunar infarct noted in the left basal ganglia. No mass effect or midline shift. No hemorrhage or acute territorial infarct. No extra-axial fluid collection. Paranasal sinuses and mastoid air cells clear. Calvarium intact. IMPRESSION: 1. No acute intracranial pathology. 2. Chronic small vessel ischemic change and old lacunar infarct in the left basal ganglia. Electronically signed by: Nash Gee M.D. 04/17/2017 1:30 PM Dictated Date/Time: 04/17/2017 1:27 PM
[2017-04-17 14:32] LABS: URINE APPEARANCE CLEAR (CLEAR); URINE BILIRUBIN NEG (NEG); URINE COLOR YELLOW; URINE EPITHELIAL CELL AUTO 0-5 /lpf (0-5); URINE NITRITE NEG (NEG); URINE PH 7.5 (4.5-7.5); URINE SPECIFIC GRAVITY 1.015 (1.000-1.030); UROBILINOGEN NEG (NEG); ZZURINE CULT IF INDIC CATH YES
[2017-04-17 14:47] LABS: MANUAL MICROSCOPIC REQUIRED? NO; REVIEW REQ? NO
[2017-04-17] MEDS ORDERED: ASPIRIN 324 MG CHEW PO STA (14:53)
[2017-04-17] MEDS ORDERED: IV FLUIDS COMPLETED PRN (16:15)
[2017-04-17] MEDS ORDERED: ACETAMINOPHEN 325 MG TAB PO PRN (17:15)
[2017-04-17] MEDS ORDERED: POLYETHYLENE (MIRALAX) 17 GM PACK PO PRN (17:15)
[2017-04-17] MEDS ORDERED: ONDANSETRON INJ 2 MG/ML 2 ML VIAL IV PRN (17:15)
[2017-04-17] MEDS ORDERED: ALUMINUM/MAGNESIUM/SIMETH (MAALOX MAX) 30 ML UDC PO PRN (17:15)
[2017-04-17] MEDS ORDERED: GLUCOSE 10 TABS/TUBE PO PRN (18:00)
[2017-04-17] MEDS ORDERED: GLUCOSE 40% GEL 15 GM TUBE PO PRN (18:00)
[2017-04-17] MEDS ORDERED: DEXTROSE 50% 50 ML SYR IV PRN (18:00)
[2017-04-17] MEDS ORDERED: GLUCAGON FOR INJ 1 MG VIAL SQ PRN (18:00)
--- NOTE | 2017-04-17 18:30 | History and Physical ---
History & Physical Date & Time of Service: Apr 17, 2017 at 18:11 Chief Complaint: Head Bleed Primary Care Physician: No Doctor, Assigned History of Present Illness Source: patient This is an 86 y/o M with pmh of Afib (on Apixaban), HTN, Diabetes, GERD, recent left mca stroke who presents from [facility] for concern of right arm drift and confusion. He was admitted from Apr 08 - with dizziness, facial droop, gait instability; diagnosed with CVA of left frontal lobe, and discharged to [facility] for rehab, with residual Dysarthria, left facial droop. During his admission he was noted to be in Afib (appears new). He was placed on metoprolol, verapamil, apixaban for his Afib. His Family reports that he was doing well at [facility], ambulatory with walker and speech was improving (he could speak few words and almost sentences that was understandable by family). However, this morning, he was noted to have worsening dysarthria, confusion and right arm drift. There was also concern about increased BP (170/95) and HR (125) - as reported in my discussion with nursing at [facility]. He was therefore directed to the ER for further evaluation His nephew accompanied the patient and notes that his speech is a little worse though he has not noted any changes with his strength/walking. He's unsure about supposed worsening with rehab/physical activity. Patients speech is not comprehendible but patient does understand well and responds to simple commands Denies chest pain, shortness of breath, abdominal pain, n/v/d, numbness/ tingling of ext, dizziness Past Medical/Surgical History HTN Afib CVA GERD DIabetes Social History Smoking Status: Former Smoker Drug Use: none Marital Status: Housing status: lives alone Occupational Status: retired Immunizations History of Influenza Vaccine: Yes Influenza Vaccine Date: Apr 27, 2009 History of Tetanus Vaccine?: Unknown History of Pneumococcal: Yes Pneumococcal Date: Apr 27, 2007 History of Hepatitis B Vaccine: Unknown Multi-Drug Resistant Organisms History of MDRO: No Allergies Coded Allergies: No Known Allergies (Verified , 04/17/17) Home Medications Scheduled Apixaban (Eliquis), 2.5 MG PO BID Ascorbic Acid (Vitamin C), 500 MG PO DAILY Aspirin (Aspirin Ec), 81 MG PO DAILY Docusate Sodium (Docusate Sodium), 100 MG PO BID Ferrous Gluconate (Iron Supplement), 324 MG PO DAILY Furosemide (Lasix), 20 MG PO QAM Glipizide (Glucotrol), 5 MG PO DAILY Insulin Aspart (Novolog), UD Lisinopril (Zestril), 20 MG PO BID Metformin Hcl (Glucophage), 1,000 MG PO BID Metoprolol Tartrate (Lopressor) (Lopressor), 50 MG PO BID Pravastatin Sodium (Pravastatin Sodium), 40 MG PO HS Verapamil Hcl (Verapamil Hcl Sa), 240 MG PO QAM Review of Systems Constitutional: No fever, No chills Eyes: No worsening of vision ENT: + hearing loss Respiratory: No cough, No sputum, No wheezing, No shortness of breath, No dyspnea on exertion, No dyspnea at rest Cardiovascular: No chest pain, No edema, No claudication Abdomen: No pain, No nausea, No vomiting, No diarrhea Genitourinary - Male: No dysuria, No urinary frequency Neurologic: + weakness, + balance problems, No numbness/tingling, No vertigo Psychiatric: No depression symptoms, No anxiety, No substance abuse Integumentary: No rash, No itch, No new/changing skin lesions Physical Exam Vital Signs Date Time Temp Pulse Resp B/P (MAP) Pulse Ox O2 Delivery O2 Flow Rate FiO2 04/17/17 18:09 91 16 144/74 98 04/17/17 17:46 91 16 144/74 98 Room Air 04/17/17 16:15 67 16 127/65 97 Room Air 04/17/17 14:00 61 20 128/68 99 Room Air 04/17/17 12:42 82 18 135/82 99 Room Air 04/17/17 10:55 36.6 105 20 167/96 97 Room Air 04/17/17 10:55 106 General Appearance: no apparent distress Eyes: normal inspection, PERRL, EOMI ENT: pharynx normal, + pertinent finding (hearing loss) Neck: supple, no adenopathy, no JVD Respiratory/Chest: lungs clear, normal breath sounds, no respiratory distress, no accessory muscle use Cardiovascular: no edema, normal peripheral pulses, + irregularly irregular Abdomen/GI: normal bowel sounds, non tender, soft Back: no CVA tenderness Extremities/Musculoskelatal: no calf tenderness, no pedal edema, normal range of motion Neurologic/Psych: alert, + abnormal package dyer II-XII, + aphasia, + facial droop, + pertinent finding (Right sided facial droop, Right sided tongue deviation, Right arm drift with finger to nose test, slight weakness of LUE (4/5), sensation grossly normal, +'ve dysdiadochokinesia on the rigth ) Skin: normal color, warm/dry Diagnostics Laboratory Results Results Past 24 Hours Test 04/17/17 10:50 04/17/17 14:00 Range/Units White Blood Count 9.02 4.8-10.8 K/uL Red Blood Count 4.32 4.7-6.1 M/uL Hemoglobin 12.5 14.0-18.0 g/dL Hematocrit 39.2 42-52 % Mean Corpuscular Volume 90.7 80-100 fL Mean Corpuscular Hemoglobin 28.9 25-34 pg Mean Corpuscular Hemoglobin Concent 31.9 32-36 g/dl Platelet Count 333 130-400 K/uL Mean Platelet Volume 11.8 7.4-10.4 fL Neutrophils (%) (Auto) 74.0 % Lymphocytes (%) (Auto) 13.4 % Monocytes (%) (Auto) 8.5 % Eosinophils (%) (Auto) 3.2 % Basophils (%) (Auto) 0.6 % Neutrophils # (Auto) 6.67 1.4-6.5 K/uL Lymphocytes # (Auto) 1.21 1.2-3.4 K/uL Monocytes # (Auto) 0.77 0.11-0.59 K/uL Eosinophils # (Auto) 0.29 0-0.5 K/uL Basophils # (Auto) 0.05 0-0.2 K/uL RDW Standard Deviation 44.8 36.4-46.3 fL RDW Coefficient of Variation 13.5 11.5-14.5 % Immature Granulocyte % (Auto) 0.3 % Immature Granulocyte # (Auto) 0.03 0.00-0.02 K/uL Prothrombin Time 11.1 9.0-12.0 SECONDS Prothromb Time International Ratio 1.0 0.9-1.1 Activated Partial Thromboplast Time 28.2 21.0-31.0 SECONDS Partial Thromboplastin Ratio 1.1 Sodium Level 137 136-145 mmol/L Potassium Level 4.0 3.5-5.1 mmol/L Chloride Level 99 98-107 mmol/L Carbon Dioxide Level 30 21-32 mmol/L Anion Gap 8.0 3-11 mmol/L Blood Urea Nitrogen 25 7-18 mg/dl Creatinine 1.30 0.60-1.40 mg/dl Est Creatinine Clear Calc Drug Dose 41.3 ml/min Estimated GFR () 56.9 Estimated GFR (Non- 49.1 BUN/Creatinine Ratio 19.4 10-20 Random Glucose 179 70-99 mg/dl Calcium Level 10.0 8.5-10.1 mg/dl Total Bilirubin 0.5 0.2-1 mg/dl Aspartate Amino Transf (AST/SGOT) 16 15-37 U/L Alanine Aminotransferase (ALT/SGPT) 33 12-78 U/L Alkaline Phosphatase 78 45-117 U/L Total Protein 7.4 6.4-8.2 gm/dl Albumin 3.5 3.4-5.0 gm/dl Globulin 3.9 2.5-4.0 gm/dl Albumin/Globulin Ratio 0.9 0.9-2 Lipase 294 73-393 U/L Urine Color YELLOW Urine Appearance CLEAR CLEAR Urine pH 7.5 4.5-7.5 Urine Specific [place] 1.015 1.000-1.030 Urine Protein NEG NEG Urine Glucose (UA) NEG NEG Urine Ketones NEG NEG Urine Occult Blood NEG NEG Urine Nitrite NEG NEG Urine Bilirubin NEG NEG Urine Urobilinogen NEG NEG Urine Leukocyte Esterase NEG NEG Urine WBC (Auto) 1-5 0-5 /hpf Urine RBC (Auto) 0-4 0-4 /hpf Urine Hyaline Casts (Auto) 1-5 0-5 /lpf Urine Epithelial Cells (Auto) 0-5 0-5 /lpf Urine Bacteria (Auto) 2+ NEG Microbiology Results 04/17/17 Urine Culture, Received Pending Impression Assessment and Plan This is an 86 y/o M with worsening dysarthria and right sided tongue deviation, concerning for New cva. ? New CVA: Head CT reports no hemorrhage but old lacunar infarct of basal ganglia which was not noted on previous CT Repeat MRI ordered Imaging from last admission last week reviewed and as follows: - MRI head revealed cortical diffusion restriction left posterior frontal lobe, involving lateral aspect of precentral gyrus, consistent with acute infarct. 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 Case discussed with Dr. Orr- recommends the same and consult if there is a change compared to MRI from last week Aspirin 325 given in the ER, held for now due to NPO status Statin Held for NPO SPeech consult PT/OT Aspiration, fall precautions NPO until speech eval; IV fluids d5 1/2 nss A1c and lipids done during last admission. Atrial fibrillation, rate controlled Rate control with metoprolol IV (20 mg IV BID- discussed with pharmacy about dosing; literature searches reveal 2.5:1 conversion rate) for now - Verapamil held - no IV replacement for today since patient has already received his dose at [facility] (confirmed) - discussed with pharmacy - IV verapamil is not usually used - can switch to dilt Eliquis 2.5mg BID- switched to Heparin therapeutic dosing [id number] of 6, 9.7% annual risk of stroke Echo reviewed: EF 55-60%, Normal LV function, Mild MR and TR Hypertension Held lisinopril Diabetes: HbA1c - 7.6 Insulin sliding scale lantus 10 u- will adjust based on blood sugars held glipizide and metformin DVT prophylaxis: Heparin Code Status DNR Level of Care Telemetry Resuscitation Status DO NOT RESUSCITATE VTE Prophylaxis VTE Risk Assessment Done? Y/N: Yes Risk Level: Moderate History Resident Physician Supervision Note: I was present with Dr. Armenta and Dr. Galindo during the history and exam. I discussed the case with the resident and agree with the findings and plan as documented in the note. Any exceptions or clarifications are listed here. 86 y/o male w/ recent CVA presents with worsening of dysarthria and a feeling of general malaise which he reported to [facility] and resulted in his transfer for further evaluation. Family is present in the room in agreement with his history. He presently reports some worsening of his speech but without any changes to his strength or any pain. He denies any injury and has been doing well at rehab per himself and family. General Appearance: no apparent distress Eye Exam: bilateral eye PERRL, bilateral eye EOMI Ears, Nose, Throat: pharynx normal, other (significant deafness requiring hearing aids) Neck: non-tender, full range of motion, other (no bruit) Respiratory: chest non-tender, lungs clear, normal breath sounds, no respiratory distress Cardiovascular: normal peripheral pulses, regular rate, rhythm, no edema, no murmur Gastrointestinal: normal bowel sounds, non tender, soft Neurologic/Psychiatric: alert, normal mood/affect, other (4+/5 on the left upper and lower extremity but gross function is well. R sided facial droop at rest with some persistence with engagement of facial muscles. Right tongue deviation) Assessment/Plan 86 y/o male h/o DM, HTN, AF, recent CVA presents w/ worsening dysarthria concerning for repeat CVA Dysarthria - repeat MRI this evening, no need for neck imaging at this time (as recently completed). S/S eval in AM holding PO medication until then. PT/OT re- evaluation. Neurology consult if warranted by MRI. D51/2NS maintenance Atrial fibrillation - convert to IV metoprolol, heparin, will resume previous regimen if cleared by S/S HTN - holding lisinopril, monitor DMII - lantus and ISS, holding glipizide and metformin. Will consider D/C glipizide on discharge.
[2017-04-17] MEDS ORDERED: PHARMACIST DISCHARGE MED REC CONSULT PRN (19:00)
--- NOTE | 2017-04-17 19:14 | EMERGENCY ROOM VISIT NOTE ---
History Report prepared by Torsten: Tatyana Borden Under the Supervision of: Dr. Claude Henderson D.O. First contact with patient: 12:04 Chief Complaint: NEURO SYMPTOMS Stated Complaint: HEAD BLEED Nursing Triage Summary: Patient arrived via ALS from [facility]. Patient is there for rehab for a left frontal hemorrhage. Per [facility] staff, patient is less responsive and weaker than normal. Patient has hx of right sided hemiparesis, answers yes and no questions, and has some expressive aphasia at baseline. Patient able to move all extremities. No c/o at this time. Patients son states, "he seems more lethargic than yesterday, he was doing a lot better yesterday than he seems to be today". History of Present Illness The patient is an 86 year old male who presents to the Emergency Room with complaints of worsening neuro symptoms starting this morning. The patient is here with his nephew. The patient had a stroke 1 week ago. 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 He was started on Eliquis. Since then he has had speech difficulties and right facial droop. He did not have any motor deficits. The patient was sent to [facility] for rehab where he had been making progress. Today, his nephew was contacted by [facility] and told that the patient needed to go to the ED as he had developed more neurological symptoms. They think that the patient has become weaker. The patient does not think that he is weaker. The patient's nephew states that he seems more tired and his speech was more garbled. The speech seems to be improving. He denies any headache, change in vision, abdominal pain, fever, or dysuria. [facility] staff note that the patient was having worsening trouble talking, emulating and had a drift of the right upper extremity. Source of History: patient, family Onset: this morning Position: other (global) Quality: other (neuro symptoms) Timing: worsening Associated Symptoms: + fatigue, + weakness, No fevers, No headache, No abdominal pain, No urinary symptoms Note: Pt has speech difficulties. Pt denies change in vision. Review of Systems See HPI for pertinent positives & negatives. A total of 10 systems reviewed and were otherwise negative. Past Medical & Surgical Medical Problems: (1) Anemia Nos (2) Diab Madelyn Wo Comp Type Ii Or Nos/Not Uncontrolled (3) Dysarthria (4) Esophageal Reflux (5) Gout Nos (6) Hypertension Nos (7) Stroke-like symptoms Family History Noncontributory secondary to age. Social History Smoking Status: Former Smoker Drug Use: none Marital Status: Housing Status: lives alone Occupation Status: retired Current/Historical Medications Scheduled Apixaban (Eliquis), 2.5 MG PO BID Ascorbic Acid (Vitamin C), 500 MG PO DAILY Aspirin (Aspirin Ec), 81 MG PO DAILY Docusate Sodium (Docusate Sodium), 100 MG PO BID Ferrous Gluconate (Iron Supplement), 324 MG PO DAILY Furosemide (Lasix), 20 MG PO QAM Glipizide (Glucotrol), 5 MG PO DAILY Insulin Aspart (Novolog), UD Lisinopril (Zestril), 20 MG PO BID Metformin Hcl (Glucophage), 1,000 MG PO BID Metoprolol Tartrate (Lopressor) (Lopressor), 50 MG PO BID Pravastatin Sodium (Pravastatin Sodium), 40 MG PO HS Verapamil Hcl (Verapamil Hcl Sa), 240 MG PO QAM Allergies Coded Allergies: No Known Allergies (Verified , 04/17/17) Physical Exam Vital Signs Date Time Temp Pulse Resp B/P (MAP) Pulse Ox O2 Delivery O2 Flow Rate FiO2 04/17/17 14:00 61 20 128/68 99 Room Air 04/17/17 12:42 82 18 135/82 99 Room Air 04/17/17 10:55 36.6 105 20 167/96 97 Room Air 04/17/17 10:55 106 Physical Exam GENERAL: sitting up in bed, disheveled, chronically ill appearing EYE EXAM: normal conjunctiva, PERRL and EOM's intact OROPHARYNX: no exudate, no erythema, lips, buccal mucosa, and tongue normal and mucous membranes are moist NECK: supple, no nuchal rigidity, no adenopathy, non-tender LUNGS: Clear to auscultation. Normal chest wall mechanics HEART: no murmurs, S1 normal and S2 normal ABDOMEN: abdomen soft, non-tender, normo-active bowel sounds, no masses, no rebound or guarding. BACK: Back is symmetrical on inspection and there is no deformity, no midline tenderness, no CVA tenderness. SKIN: no rashes and no bruising UPPER EXTREMITIES: upper extremities are grossly normal. LOWER EXTREMITIES: No pitting edema. NEURO EXAM: Alert with moderate dysarthria, able to answer questions with 1-2 words, no weakness with grasp, flexion extension of the upper extremities or lower extremities. Tongue deviates to the right, right sided facial droop. Positive drift in RUE along with finger pass on the right, no drift and finger to nose on the left. Medical Decision & Procedures ER Provider Diagnostic Interpretation: Radiology results as stated below per my review and the radiologist's interpretation: CHEST ONE VIEW PORTABLE CLINICAL HISTORY: Weakness COMPARISON STUDY: 04/10/2017 FINDINGS: The heart remains enlarged. There is improving pulmonary vascular congestion and interstitial edema. There are residual left basal airspace opacities.[ IMPRESSION: Cardiomegaly and resolving interstitial edema. Persistent left basal airspace opacities, likely representing residual edema although an inflammatory process could appear similar Electronically signed by: Torito Hardin M.D. 04/17/2017 12:39 PM Dictated Date/Time: 04/17/2017 12:37 PM HEAD WITHOUT CONTRAST (CT) CLINICAL HISTORY: 86 years-old Male presenting with recent stroke w/ head bleed. TECHNIQUE: Multidetector CT imaging of the head was performed without the use of intravenous contrast. IV contrast: None. A dose lowering technique was used consistent with the principles of ALARA (as low as reasonably achievable). COMPARISON: 04/08/2017.. CT DOSE (mGy.cm): The estimated cumulative dose is 823.94 mGycm. FINDINGS: Cloth Edge Singer topogram: Unremarkable. Proportional ventricular and sulcal prominence, likely age-related parenchymal volume loss. Periventricular and subcortical white matter hypoattenuation, nonspecific but likely indicative of chronic small vessel ischemic change. Old lacunar infarct noted in the left basal ganglia. No mass effect or midline shift. No hemorrhage or acute territorial infarct. No extra-axial fluid collection. Paranasal sinuses and mastoid air cells clear. Calvarium intact. IMPRESSION: 1. No acute intracranial pathology. 2. Chronic small vessel ischemic change and old lacunar infarct in the left basal ganglia. Electronically signed by: Nash Gee M.D. 04/17/2017 1:30 PM Dictated Date/Time: 04/17/2017 1:27 PM Laboratory Results 04/17/17 10:50 Red Blood Count 4.32, Mean Corpuscular Volume 90.7, Mean Corpuscular Hemoglobin 28.9, Mean Corpuscular Hemoglobin Concent 31.9, Mean Platelet Volume 11.8, Neutrophils (%) (Auto) 74.0, Lymphocytes (%) (Auto) 13.4, Monocytes (%) (Auto) 8.5, Eosinophils (%) (Auto) 3.2, Basophils (%) (Auto) 0.6, Neutrophils # (Auto) 6.67, Lymphocytes # (Auto) 1.21, Monocytes # (Auto) 0.77, Eosinophils # (Auto) 0.29, Basophils # (Auto) 0.05 04/17/17 10:50 Test 04/17/17 10:50 04/17/17 14:00 White Blood Count 9.02 K/uL (4.8-10.8) Red Blood Count 4.32 M/uL (4.7-6.1) Hemoglobin 12.5 g/dL (14.0-18.0) Hematocrit 39.2 % (42-52) Mean Corpuscular Volume 90.7 fL (80-100) Mean Corpuscular Hemoglobin 28.9 pg (25-34) Mean Corpuscular Hemoglobin Concent 31.9 g/dl (32-36) Platelet Count 333 K/uL (130-400) Mean Platelet Volume 11.8 fL (7.4-10.4) Neutrophils (%) (Auto) 74.0 % Lymphocytes (%) (Auto) 13.4 % Monocytes (%) (Auto) 8.5 % Eosinophils (%) (Auto) 3.2 % Basophils (%) (Auto) 0.6 % Neutrophils # (Auto) 6.67 K/uL (1.4-6.5) Lymphocytes # (Auto) 1.21 K/uL (1.2-3.4) Monocytes # (Auto) 0.77 K/uL (0.11-0.59) Eosinophils # (Auto) 0.29 K/uL (0-0.5) Basophils # (Auto) 0.05 K/uL (0-0.2) RDW Standard Deviation 44.8 fL (36.4-46.3) RDW Coefficient of Variation 13.5 % (11.5-14.5) Immature Granulocyte % (Auto) 0.3 % Immature Granulocyte # (Auto) 0.03 K/uL (0.00-0.02) Prothrombin Time 11.1 SECONDS (9.0-12.0) Prothromb Time International Ratio 1.0 (0.9-1.1) Activated Partial Thromboplast Time 28.2 SECONDS (21.0-31.0) Partial Thromboplastin Ratio 1.1 Anion Gap 8.0 mmol/L (3-11) Est Creatinine Clear Calc Drug Dose 41.3 ml/min Estimated GFR () 56.9 Estimated GFR (Non- 49.1 BUN/Creatinine Ratio 19.4 (10-20) Calcium Level 10.0 mg/dl (8.5-10.1) Total Bilirubin 0.5 mg/dl (0.2-1) Aspartate Amino Transf (AST/SGOT) 16 U/L (15-37) Alanine Aminotransferase (ALT/SGPT) 33 U/L (12-78) Alkaline Phosphatase 78 U/L (45-117) Total Protein 7.4 gm/dl (6.4-8.2) Albumin 3.5 gm/dl (3.4-5.0) Globulin 3.9 gm/dl (2.5-4.0) Albumin/Globulin Ratio 0.9 (0.9-2) Lipase 294 U/L (73-393) Urine Color YELLOW Urine Appearance CLEAR (CLEAR) Urine pH 7.5 (4.5-7.5) Urine Specific [place] 1.015 (1.000-1.030) Urine Protein NEG (NEG) Urine Glucose (UA) NEG (NEG) Urine Ketones NEG (NEG) Urine Occult Blood NEG (NEG) Urine Nitrite NEG (NEG) Urine Bilirubin NEG (NEG) Urine Urobilinogen NEG (NEG) Urine Leukocyte Esterase NEG (NEG) Urine WBC (Auto) 1-5 /hpf (0-5) Urine RBC (Auto) 0-4 /hpf (0-4) Urine Hyaline Casts (Auto) 1-5 /lpf (0-5) Urine Epithelial Cells (Auto) 0-5 /lpf (0-5) Urine Bacteria (Auto) 2+ (NEG) Laboratory results per my review. Medications Administered Medications (Trade) Dose Ordered Sig/Maritza Route Start Time Stop Time Status Last Admin Dose Admin Sodium Chloride 500 ml @ 999 mls/hr Q31M STAT IV 04/17/17 12:29 04/17/17 12:59 DC 04/17/17 12:42 999 MLS/HR Aspirin (Aspirin Chew) 324 mg NOW STAT PO 04/17/17 14:53 04/17/17 14:54 DC 04/17/17 15:00 324 MG ECG Indication: weakness Rate (beats per minute): 89 Rhythm: atrial fibrillation Findings: Q waves (Septal), other (normal axis) ED Course ED COURSE: Vital signs were reviewed and showed tachycardia, hypertension. The patients medical record was reviewed The above diagnostic studies were performed and reviewed. ED treatments and interventions as stated above. 1216: The patient was evaluated in room C10. A complete history and physical examination was performed. 1229: NSS 500 ml @ 999 mls/hr IV. 1344: I spoke with Israel Snachez. She states that the patient developed RUE drift, word finding, and trouble ambulating which are all new. 1451: I reviewed the patient's case with Dr. Ribera, [facility] hospitalist. He will evaluate the patient for further management. 1453: Aspirin 324 mg PO. 1454: Upon reevaluation, the patient is stable. I discussed my findings with the patient and his family and they understand and agrees with the treatment plan. Based on the patients age, coexisting illnesses, exam and lab findings the decision to treat as an inpatient was made. The patient remained stable while under my care. The patient will be evaluated for further management. Medical Decision Differential Diagnosis includes but is not limited to ischemic Stroke, hemorrhagic stroke, bells palsy, mass, neoplasm, migraine headache, seizure, subarachnoid hemorrhage, TIA, and transient global amnesia. Patient is an 86-year-old male that presents to ER referred in following a recent stroke for right upper charade shifts associated with trouble ambulating and worsening dysarthria. Previous stroke is in the left frontal region. CT today shows what appears to be an old lacunar infarct in the vasoganglia. Compared to the CT on 08-Apr-2017, this is new. Patient was given fluids and aspirin following the negative CT head. Patient family were updated at bedside. Labs were fairly unremarkable. Chest x-ray doesn't appear to be significant change from previous. No upper respiratory symptoms. No other signs of infection. Patient was admits internal medicine for possible worsening stroke. Medication Reconcilliation Current Medication List: was personally reviewed by me Blood Pressure Screening Patient's blood pressure: Elevated blood pressure Blood pressure disposition: Elevated BP felt to be situational Consults Time Called: 1341 Consulting Physician: Israel Sanchez Returned Call: [phone] I spoke with her. She states that the patient developed RUE drift, word finding , and trouble ambulating which are all new. Additional Consults: Time Called: 1448 Consulted Physician: Dr. Ribera [facility] hospitalist Returned Call: [phone] Additional Comments: I reviewed the patient's case with him. He will evaluate the patient for further management. Impression Primary Impression: CVA (cerebral vascular accident) Scribe Attestation The scribe's documentation has been prepared under my direction and personally reviewed by me in its entirety. I confirm that the note above accurately reflects all work, treatment, procedures, and medical decision making performed by me. Departure Information Dispostion Being Evaluated By Hospitalist Referrals No Doctor, Assigned (PCP) Patient Instructions My [facility] Stroke History Time Last Known Well unknown Stroke t-PA Criteria Reviewed Does NOT meet criteria for t-PA Reason t-PA Not Given Treatment not indicated Problem Qualifiers Primary Impression: CVA (cerebral vascular accident) CVA mechanism: unspecified Qualified Codes: I63.9 - Cerebral infarction, unspecified
[2017-04-17] MEDS ORDERED: HEPARIN 25,000 UNIT/500ML D5W 500 ML IV PRN (19:30)
[2017-04-17] MEDS: D5NSS + 20MEQ KCL 1,000 ML IV SCH (19:51)
[2017-04-17 20:12] VITALS: BP 157/83; PULSE 84; O2SAT 96
[2017-04-17] MEDS: METOPROLOL TARTRATE 1 MG/ML VIAL IV. SCH (20:14)
[2017-04-17] MEDS ORDERED: METOPROLOL TARTRATE 50 MG TAB PO SCH (21:00)
[2017-04-17] MEDS ORDERED: INSULIN ASPART 100 UNITS/ML 3 ML PEN SC SCH (21:00)
[2017-04-17] MEDS ORDERED: LISINOPRIL 20 MG TAB PO SCH (21:00)
[2017-04-17] MEDS ORDERED: APIXABAN 2.5 MG TAB PO SCH (21:00)
[2017-04-17] MEDS ORDERED: INSULIN GLARGINE SOLOSTAR 100 UNITS/ML 3 ML PEN SC SCH (21:00)
[2017-04-17] MEDS ORDERED: DOCUSATE SODIUM 100 MG CAP PO SCH (21:00)
[2017-04-17] MEDS ORDERED: PRAVASTATIN SOD 40 MG TAB PO SCH (21:00)
[2017-04-17 21:04] VITALS: BP 176/78; PULSE 82; TEMP 36.3; Ht 177.8 cm; Wt 81.3 kg
--- NOTE | 2017-04-17 23:06 | DIAGNOSTIC IMAGING REPORT ---
MRI OF THE BRAIN WITHOUT CONTRAST CLINICAL HISTORY: New right facial droop. COMPARISON STUDY: MRI of the brain April 09, [address] performed earlier today. TECHNIQUE: Utilizing a 1.5 Eunice magnet and dedicated coil, multiplanar, multiecho imaging of the brain was performed without IV contrast. FINDINGS: Several small foci of restricted diffusion within the left frontal and parietal lobes are new since MRI of April 09, 2017 and suggest acute infarcts. The acute infarct within the left frontal lobe shown on MRI of April 09, 2017 demonstrates expected evolution. A few acute punctate infarcts within the right parietal and occipital lobes are also noted. There is no mass effect. No hemorrhage is present. Ventricular system is normal for age. Basilar cisterns are patent. There are no extra-axial collections. Flow-voids for the major intracranial vessels are present. White matter T2 hyperintense foci suggest small vessel disease. Calvarial signal is maintained. IMPRESSION: Interval development of several small foci of acute infarction within the left frontal and parietal lobes with punctate acute infarcts within the right parietal and occipital lobes since MRI of April 09, 2017. No mass effect or hemorrhage. The findings suggest an embolic event. Electronically signed by: Sherman Dillard M.D. 04/17/2017 11:05 PM Dictated Date/Time: 04/17/2017 11:00 PM
[2017-04-17] MEDS ORDERED: PNEUMOCOCCAL POLYSACCHARIDES 25 MCG/0.5 ML VIAL/SYR IM. ONE (23:15)
[2017-04-17] MEDS ORDERED: PNEUMOCOCCAL ADMINISTRATION CHARGE ONE (23:15)
[2017-04-18] VITALS (8 sets, daily range): BP systolic 145–185; BP diastolic 76–99; PULSE 59–98; TEMP 36.4–36.9; O2SAT 96–99
[2017-04-18] MEDS: METOPROLOL TARTRATE 1 MG/ML VIAL IV. SCH ×2 (00:01→05:40)
[2017-04-18 02:45] LABS: PARTIAL THROMBOPLASTIN RATIO 2.1
[2017-04-18] MEDS: D5NSS + 20MEQ KCL 1,000 ML IV SCH (05:35)
--- NOTE | 2017-04-18 05:41 | Family Medicine Progress Note ---
Progress Note Date of Service Apr 18, 2017. Subjective Pt evaluation today including: conversation w/ patient, physical exam, chart review, lab review Found pt resting comfortably. Says he's "feeling good". Denies any pain or other acute concerns. Constitutional: No fever, No chills Respiratory: No cough, No shortness of breath Cardiovascular: No chest pain Abdomen: No nausea, No vomiting, No diarrhea Medications Current Inpatient Medications Medications (Trade) Dose Ordered Sig/Maritza Route Start Time Stop Time Status Last Admin Dose Admin Miscellaneous (Iv Fluids Completed) 1 ea PRN PRN N/A 04/17/17 16:15 04/17/18 16:14 Potassium Chloride/Dextrose/ Sod Cl 1,000 ml @ 100 mls/hr Q10H IV 04/17/17 19:30 05/17/17 19:29 04/18/17 05:35 100 MLS/HR Apixaban (Eliquis Tab) 2.5 mg BID PO 04/17/17 21:00 05/17/17 20:59 Future Hold Aspirin (Ecotrin Tab) 81 mg DAILY PO 04/18/17 09:00 05/18/17 08:59 Future Hold Lisinopril (Zestril Tab) 20 mg BID PO 04/17/17 21:00 05/17/17 20:59 Future Hold Metoprolol Tartrate (Lopressor Tab) 50 mg BID PO 04/17/17 21:00 05/17/17 20:59 Future Hold Pravastatin Sodium (Pravachol Tab) 40 mg HS PO 04/17/17 21:00 05/17/17 20:59 Future Hold Verapamil HCl (Calan-Sr Tab) 240 mg QAM PO 04/18/17 09:00 05/18/17 08:59 Future Hold Ascorbic Acid (Vitamin C Tab) 500 mg DAILY PO 04/18/17 09:00 05/18/17 08:59 Future Hold Docusate Sodium (coLACE CAP) 100 mg BID PO 04/17/17 21:00 05/17/17 20:59 Future Hold Acetaminophen (Tylenol Tab) 650 mg Q4H PRN PO 04/17/17 17:15 05/17/17 17:14 Future Hold Al Hydrox/Mg Hydrox/Simethicone (Maalox Max Susp) 15 ml Q4H PRN PO 04/17/17 17:15 10/12/17 17:14 Future Hold Ondansetron HCl (Zofran Inj) 4 mg Q6H PRN IV 04/17/17 17:15 05/17/17 17:14 Polyethylene (Miralax Powder Packet) 17 gm DAILY PRN PO 04/17/17 17:15 05/17/17 17:14 Future Hold Insulin Glargine (Lantus Solostar Pen) 10 units QPM SC 04/17/17 21:00 05/17/17 20:59 04/17/17 20:37 10 UNITS Metoprolol Tartrate (Lopressor Iv) 5 mg Q6 IV. 04/17/17 19:30 05/17/17 19:29 04/18/17 05:40 5 MG Glucose (Glucose 40% Gel) 15-30 GRAMS 15 GRAMS... UD PRN PO 04/17/17 18:00 05/17/17 17:59 Glucose (Glucose Chew Tab) 4-8 Tablets 4 Tabl... UD PRN PO 04/17/17 18:00 05/17/17 17:59 Dextrose (Dextrose 50% 50ML Syringe) 25-50ML OF 50% DW IV FOR... UD PRN IV 04/17/17 18:00 05/17/17 17:59 Glucagon (Glucagon Inj) 1 mg UD PRN SQ 04/17/17 18:00 05/17/17 17:59 Miscellaneous Information (Pharmacist Discharge Med Rec Consult) 1 ea UD PRN N/A 04/17/17 19:00 05/17/17 18:59 Heparin Sodium/ Dextrose 500 ml @ 27 mls/hr [id number] PRN IV 04/17/17 19:30 05/17/17 19:29 04/17/17 19:55 27 MLS/HR Insulin Aspart (novoLOG ASPART) SLIDING SCALE G... Q6 SC 04/18/17 00:00 05/18/17 00:00 04/18/17 06:00 1 UNITS Objective Vital Signs Date Time Temp Pulse Resp B/P (MAP) Pulse Ox O2 Delivery O2 Flow Rate FiO2 04/18/17 07:29 36.7 90 16 167/85 (112) 96 Room Air 04/18/17 05:40 94 156/87 04/18/17 04:00 Room Air 04/18/17 03:39 36.4 88 20 166/88 (114) 98 Room Air 04/18/17 00:01 36.7 91 18 185/93 (123) 97 Room Air 177/91 (119) 04/18/17 00:01 91 185/93 04/18/17 00:00 Room Air 04/17/17 21:04 36.3 82 18 176/78 Room Air 04/17/17 20:14 84 157/83 04/17/17 20:12 84 18 157/83 (107) 96 Room Air 04/17/17 20:00 Room Air 04/17/17 18:09 91 16 144/74 98 04/17/17 17:46 91 16 144/74 98 Room Air 04/17/17 16:15 67 16 127/65 97 Room Air 04/17/17 14:00 61 20 128/68 99 Room Air 04/17/17 12:42 82 18 135/82 99 Room Air 04/17/17 10:55 36.6 105 20 167/96 97 Room Air 04/17/17 10:55 106 Physical Exam General Appearance: no apparent distress Eyes: PERRL, EOMI Respiratory/Chest: lungs clear, normal breath sounds, no respiratory distress Cardiovascular: regular rate, rhythm, no edema Abdomen: normal bowel sounds, non tender Neurologic/Psychiatric: alert Notes: - Ongoing, perhaps slightly worse right facial droop, accented on smiling. Tongue extension deviates to right. - (B)UE and (B)LE strength 5/5. Distal sensation equal/intact. - Multiple arm contusions (appears s/p IV access). [id number]: MRI OF THE BRAIN WITHOUT CONTRAST IMPRESSION: Interval development of several small foci of acute infarction within the left frontal and parietal lobes with punctate acute infarcts within the right parietal and occipital lobes since MRI of April 09, 2017. No mass effect or hemorrhage. The findings suggest an embolic event. Laboratory Results 04/18/17 07:02 04/17/17 10:50 Test 04/17/17 10:50 04/17/17 14:00 04/18/17 01:46 04/18/17 07:02 Immature Granulocyte % (Auto) 0.3 % White Blood Count 9.02 K/uL (4.8-10.8) Red Blood Count 4.32 M/uL (4.7-6.1) 3.85 M/uL (4.7-6.1) Hemoglobin 12.5 g/dL (14.0-18.0) Hematocrit 39.2 % (42-52) Mean Corpuscular Volume 90.7 fL (80-100) 88.6 fL (80-100) Mean Corpuscular Hemoglobin 28.9 pg (25-34) 29.6 pg (25-34) Mean Corpuscular Hemoglobin Concent 31.9 g/dl (32-36) 33.4 g/dl (32-36) Platelet Count 333 K/uL (130-400) Mean Platelet Volume 11.8 fL (7.4-10.4) 11.6 fL (7.4-10.4) Neutrophils (%) (Auto) 74.0 % Lymphocytes (%) (Auto) 13.4 % Monocytes (%) (Auto) 8.5 % Eosinophils (%) (Auto) 3.2 % Basophils (%) (Auto) 0.6 % Neutrophils # (Auto) 6.67 K/uL (1.4-6.5) Lymphocytes # (Auto) 1.21 K/uL (1.2-3.4) Monocytes # (Auto) 0.77 K/uL (0.11-0.59) Eosinophils # (Auto) 0.29 K/uL (0-0.5) Basophils # (Auto) 0.05 K/uL (0-0.2) Immature Granulocyte # (Auto) 0.03 K/uL (0.00-0.02) Prothrombin Time 11.1 SECONDS (9.0-12.0) Prothromb Time International Ratio 1.0 (0.9-1.1) Anion Gap 8.0 mmol/L (3-11) Est Creatinine Clear Calc Drug Dose 41.3 ml/min Estimated GFR () 56.9 Estimated GFR (Non- 49.1 BUN/Creatinine Ratio 19.4 (10-20) Calcium Level 10.0 mg/dl (8.5-10.1) Total Bilirubin 0.5 mg/dl (0.2-1) Aspartate Amino Transf (AST/SGOT) 16 U/L (15-37) Alanine Aminotransferase (ALT/SGPT) 33 U/L (12-78) Alkaline Phosphatase 78 U/L (45-117) Total Protein 7.4 gm/dl (6.4-8.2) Albumin 3.5 gm/dl (3.4-5.0) Globulin 3.9 gm/dl (2.5-4.0) Albumin/Globulin Ratio 0.9 (0.9-2) Lipase 294 U/L (73-393) Urine Color YELLOW Urine Appearance CLEAR (CLEAR) Urine pH 7.5 (4.5-7.5) Urine Specific [place] 1.015 (1.000-1.030) Urine Protein NEG (NEG) Urine Glucose (UA) NEG (NEG) Urine Ketones NEG (NEG) Urine Occult Blood NEG (NEG) Urine Nitrite NEG (NEG) Urine Bilirubin NEG (NEG) Urine Urobilinogen NEG (NEG) Urine Leukocyte Esterase NEG (NEG) Urine WBC (Auto) 1-5 /hpf (0-5) Urine RBC (Auto) 0-4 /hpf (0-4) Urine Hyaline Casts (Auto) 1-5 /lpf (0-5) Urine Epithelial Cells (Auto) 0-5 /lpf (0-5) Urine Bacteria (Auto) 2+ (NEG) Activated Partial Thromboplast Time 53.9 SECONDS (21.0-31.0) Partial Thromboplastin Ratio 2.1 RDW Standard Deviation 44.0 fL (36.4-46.3) RDW Coefficient of Variation 13.6 % (11.5-14.5) Test 04/18/17 07:05 Bedside Glucose 195 mg/dl (70-99) Assessment and Plan 86yo male with recent ischemic CVA on 04Sep presented/admitted from ED after noted to have some new neuro findings on exam while at inpt rehab on 12Sep. CVA: Question of if pt had a new basal ganglia CVA based on CT from this ED visit. Pt noted to have a new right facial droop (prior was left facial) and right tongue deviation. Otherwise no immediate changes in neuro status and no particular pt concerns except a bit of worsening speech. Case was discussed with neurology (Dr. Orr) while in the ED, asked for repeat MRI and to re- contact if any changes noted as compared with a week ago. MRI on 12Sep concerning for interval multiple small embolic strokes. [ ] Consult to neurology for further evaluation. - Held PO meds for now pending speech consult. Converted metoprolol to IV and held verapamil for now (pt got daily dose on morning of 12Sep). [ ] Speech consulted. NPO until their evaluation. Maintenance IVF in interim. - CVA precautions: Aspiration, fall precautions, neuro evals for acute change. PMH Afib: Diagnosed during last admission earlier in the month. Presently rate- controlled, on metoprolol and verapamil as outpt. On Eliquis for anticoagulation as outpt. - Held eliquis due to holding PO. Started heparin as prophy for now. - On Metoprolol 5 mg IV q6h for HTN and afib coverage while NPO. PMH HTN: Held home lisinopril while NPO. Otherwise will restart. PMH DM2: Last HbA1c was 7.6 - Placed on insulin sliding scale here. - Held his home glipizide and metformin while NPO. Otherwise will restart. DVT prophy: Heparin. Code status: DNR Level 5 Will discuss all the above on attending rounds this morning. WILLAM, PGY1 Hand Spring Repairer Tracking Resident Involvement: Resident Care Provided Care Provided: Adult Hospital Medicine (inpt rounds) History Resident Physician Supervision Note: I was present with Dr. Galindo during the history and exam. I discussed the case with the resident and agree with the findings and plan as documented in the note. Any exceptions or clarifications are listed here. For full attending documentation, please see accompanying note from same day. Assessment/Plan 86 y/o male h/o DM, HTN, AF, recent CVA presents w/ worsening dysarthria concerning for repeat CVA CVA w/ new onset dysarthria - improved since previous - increased apixaban to 5mg daily, continued secondary prophylaxis w/ statin and ASA Atrial fibrillation - resume previous medication regimen HTN - resume home medication DMII - resume glipizide and metformin. Would monitor carefully for hypoglycemia w/ glipizide in outpatient setting.
[2017-04-18] MEDS: INSULIN ASPART 100 UNITS/ML 3 ML PEN SC SCH ×3 (06:00→12:56)
[2017-04-18 07:31] LABS: HEMATOCRIT 34.1 % (42-52); MEAN CELL VOLUME 88.6 fL (80-100); MEAN CORPUSCULAR HEMOGLOBIN 29.6 pg (25-34); MEAN CORPUSCULAR HGB CONC 33.4 g/dl (32-36); MEAN PLATELET VOLUME 11.6 fL (7.4-10.4); PLATELET COUNT 260 K/uL (130-400); RED BLOOD COUNT 3.85 M/uL (4.7-6.1); WHITE BLOOD COUNT 5.62 K/uL (4.8-10.8)
--- NOTE | 2017-04-18 08:28 | Neurology Consultation ---
Neurology Consultation Date of Consultation: Apr 18, 2017. Attending Physician: Mitchell Jung MD Primary Care Physician: No Doctor, Assigned Reason for Consultation: Patient is an 86-year-old, who was asked to see at the request of Drs. Armenta and Erich, for neurologic consultation regarding new stroke. History of Present Illness Source: patient, caregiver, hospital records On April 08, the patient had the onset of dizziness, expressive aphasia/ dysarthria, and unsteady gait. He came to the emergency room and was found to be hypertensive and in atrial fibrillation. This was a new diagnosis for him. He was seen by Dr. Sterling in consultation. MRI of the brain showed a left middle cerebral artery infarct of a very small nature peripherally likely embolic in nature. There was moderate atrophy and moderate old small vessel ischemia in general. CT scan showed no hemorrhage. MR angiography of the head and neck showed a stenotic right posterior cerebral artery and less than 50% stenosis due to plaque in the proximal left internal carotid artery. There was a hypoplastic right vertebral and dominant left vertebral but no other significant stenoses was noted particularly in the middle cerebral arteries. Echocardiogram was largely unremarkable with no source of embolus. Laboratory studies revealed elevated glucose, mild anemia, and a cholesterol of 133. Patient was sent to [facility] and was doing well until yesterday. He was noted to be more lethargic, weaker in general, and with more speech problems. A right-sided facial droop was noted. This was new compared to the previous hospitalization. On April 17, he arrived at 1055 hours with a temperature 36.6, pulse 105, respiratory rate 20, blood pressure 167/96, and O2 saturation 97%. Exam revealed some dysarthria, tongue deviation to the right, and right facial droop. There was a right upper extremity drift as well. CT scan showed no acute change or hemorrhage. There was an old left basal ganglia infarct and small vessel disease of an old nature. Chest x-ray showed cardiomegaly and some resolving interstitial edema MRI of the brain revealed multiple new small acute infarcts in the right parietal occipital head regions on the left parietal head region. These were embolic in nature. The left middle cerebral artery small stroke from April 08 was evolving in an expected nature. CBC showed some mild anemia but this was consistent with this. His hospitalization. Glucose was 179 and creatinine was 1.3. Chem profile was otherwise unremarkable. PT, PTT, and INR ratio were normal. The patient was put on a heparin drip and eloquis was discontinued. This morning the patient feels "normal". He has no weakness or numbness of the limbs and no headache, spine pain, chest or abdominal pain, or other discomfort. He has no vision issues. 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 He has no incontinence of urine. Continuous monitoring has revealed chronic atrial fibrillation with a rate of about 150 with possible periods of sinus rhythm in between. Past Medical/Surgical History Medical Problems: (1) CVA (cerebral vascular accident) Status: Acute (2) Stroke Status: Acute Hypertension Diabetes Gastroesophageal reflux disease Gout Anemia Atrial fibrillation Old chronic cerebral ischemia Family History Mother age 75 of heart issues. Father age 80 of renal failure. Social History Patient quit cigarette smoking at age 34. He will occasionally have a drink of alcohol, perhaps up to once per week. 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 Smoking Status: Former smoker Alcohol Use: occasionally Drug Use: none Marital Status: Housing Status: lives alone Occupation Status: retired Allergies Coded Allergies: No Known Allergies (Verified , 04/17/17) Current Inpatient Medications Current Inpatient Medications Medications (Trade) Dose Ordered Sig/Maritza Route Start Time Stop Time Status Last Admin Dose Admin Miscellaneous (Iv Fluids Completed) 1 ea PRN PRN N/A 04/17/17 16:15 04/17/18 16:14 Potassium Chloride/Dextrose/ Sod Cl 1,000 ml @ 100 mls/hr Q10H IV 04/17/17 19:30 05/17/17 19:29 04/18/17 05:35 100 MLS/HR Apixaban (Eliquis Tab) 2.5 mg BID PO 04/17/17 21:00 05/17/17 20:59 Future Hold Aspirin (Ecotrin Tab) 81 mg DAILY PO 04/18/17 09:00 05/18/17 08:59 Future Hold Lisinopril (Zestril Tab) 20 mg BID PO 04/17/17 21:00 05/17/17 20:59 Future Hold Metoprolol Tartrate (Lopressor Tab) 50 mg BID PO 04/17/17 21:00 05/17/17 20:59 Future Hold Pravastatin Sodium (Pravachol Tab) 40 mg HS PO 04/17/17 21:00 05/17/17 20:59 Future Hold Verapamil HCl (Calan-Sr Tab) 240 mg QAM PO 04/18/17 09:00 05/18/17 08:59 Future Hold Ascorbic Acid (Vitamin C Tab) 500 mg DAILY PO 04/18/17 09:00 05/18/17 08:59 Future Hold Docusate Sodium (coLACE CAP) 100 mg BID PO 04/17/17 21:00 05/17/17 20:59 Future Hold Acetaminophen (Tylenol Tab) 650 mg Q4H PRN PO 04/17/17 17:15 05/17/17 17:14 Future Hold Al Hydrox/Mg Hydrox/Simethicone (Maalox Max Susp) 15 ml Q4H PRN PO 04/17/17 17:15 05/17/17 17:14 Future Hold Ondansetron HCl (Zofran Inj) 4 mg Q6H PRN IV 04/17/17 17:15 05/17/17 17:14 Polyethylene (Miralax Powder Packet) 17 gm DAILY PRN PO 04/17/17 17:15 05/17/17 17:14 Future Hold Insulin Glargine (Lantus Solostar Pen) 10 units QPM SC 04/17/17 21:00 05/17/17 20:59 04/17/17 20:37 10 UNITS Metoprolol Tartrate (Lopressor Iv) 5 mg Q6 IV. 04/17/17 19:30 05/17/17 19:29 04/18/17 05:40 5 MG Glucose (Glucose 40% Gel) 15-30 GRAMS 15 GRAMS... UD PRN PO 04/17/17 18:00 05/17/17 17:59 Glucose (Glucose Chew Tab) 4-8 Tablets 4 Tabl... UD PRN PO 04/17/17 18:00 05/17/17 17:59 Dextrose (Dextrose 50% 50ML Syringe) 25-50ML OF 50% DW IV FOR... UD PRN IV 04/17/17 18:00 05/17/17 17:59 Glucagon (Glucagon Inj) 1 mg UD PRN SQ 04/17/17 18:00 05/17/17 17:59 Miscellaneous Information (Pharmacist Discharge Med Rec Consult) 1 ea UD PRN N/A 04/17/17 19:00 05/17/17 18:59 Heparin Sodium/ Dextrose 500 ml @ 27 mls/hr [id number] PRN IV 04/17/17 19:30 05/17/17 19:29 04/17/17 19:55 27 MLS/HR Insulin Aspart (novoLOG ASPART) SLIDING SCALE G... Q6 SC 04/18/17 00:00 05/18/17 00:00 04/18/17 06:00 1 UNITS Review of Systems Constitutional: No weakness, No fatigue Eyes: No worsening of vision, No diplopia ENT: + hearing loss, No sore throat, No trouble swallowing Respiratory: No cough, No shortness of breath Cardiovascular: No chest pain, No palpitations Abdomen: No pain, No nausea Musculoskeletal: No joint pain, No muscle pain Genitourinary - Male: No dysuria, No urinary incontinence Neurologic: No memory loss, No weakness, No numbness/tingling, No vertigo, No balance problems Psychiatric: No depression symptoms, No anxiety Endocrine: No fatigue Hematologic / Lymphatic: No abnormal bleeding/bruising Integumentary: No rash Allergic / Immunologic: No hives Physical Exam Vital Signs (Past 24 Hrs): Date Time Temp Pulse Resp B/P (MAP) Pulse Ox O2 Delivery O2 Flow Rate FiO2 04/18/17 07:29 36.7 90 16 167/85 (112) 96 Room Air 04/18/17 05:40 94 156/87 04/18/17 04:00 Room Air 04/18/17 03:39 36.4 88 20 166/88 (114) 98 Room Air 04/18/17 00:01 36.7 91 18 185/93 (123) 97 Room Air 177/91 (119) 04/18/17 00:01 91 185/93 04/18/17 00:00 Room Air 04/17/17 21:04 36.3 82 18 176/78 Room Air 04/17/17 20:14 84 157/83 04/17/17 20:12 84 18 157/83 (107) 96 Room Air 04/17/17 20:00 Room Air 04/17/17 18:09 91 16 144/74 98 04/17/17 17:46 91 16 144/74 98 Room Air 04/17/17 16:15 67 16 127/65 97 Room Air 04/17/17 14:00 61 20 128/68 99 Room Air 04/17/17 12:42 82 18 135/82 99 Room Air 04/17/17 10:55 36.6 105 20 167/96 97 Room Air 04/17/17 10:55 106 Patient is right handed. The patient is awake and alert. Speech has mild to moderate dysarthria. There is no obvious expressive or receptive aphasia. Mentation and thought processes seem intact with orientation and normal fund of knowledge. Caution is needed because of his hearing loss: He is not confused. Mood and affect are normal and appropriate. Appearance and grooming are normal. The discs are sharp with positive venous pulsations. There are no exudates, hemorrhages, or blood vessel changes seen. Pupils are 3mm bilaterally and reactive to light. Extraocular eye muscles are intact without nystagmus. Visual acuity and visual elaine seem normal grossly to confrontation. There are no deficits to sensation of the face bilaterally. Corneal reflexes are positive bilaterally. Facial strength is normal on the left diffusely and has a mild weakness at the corner of the mouth on the right. He can hold air in his cheeks bilaterally. Hearing is decreased particularly on the right. Palate moves well without asymmetry. There is normal sternocleidomastoid and trapezius strength bilaterally. Tongue protrudes to the right and is weak on the right. Neck is with full range of motion without discomfort. There are no cervical bruits. There are no cranial or ocular bruits. Heart is without murmur. Cervical, thoracic, and lumbar spine are nontender to palpation. Gait was not tested but his stance sitting up in bed is quite normal. With outstretched arms there is no obvious drift. There are no resting, postural, or action tremors. There is no ataxia with [id number] testing. There is good facility in the hands. There are no abnormal involuntary movements noted. Motor strength is 5/5 in the left upper extremity diffusely both proximally and distally. The right upper extremity, deltoid is 4+/5 as is triceps but biceps, wrist flexors and extensors are 5/5. Teacher Public Health is 4+/5 on the right. Motor strength is 5/5 diffusely in the legs bilaterally including hip flexors, quadriceps, hamstring, gastrocnemius, tibialis anterior, tibialis posterior, and peroneii muscles bilaterally. Toe extensors are normal and there is good bulk in the extensor digitorum brevis muscle bilaterally. The limbs have good tone without rigidity or spasticity, and there is no atrophy noted. Muscle bulk is normal, there is no tenderness, no myotonia noted to percussion, and no fasciculations seen. Sensory examination is intact to pin and touch throughout all four limbs. Reflexes are 0/4 in the biceps, triceps, brachioradialis, quadriceps, and Achilles tendons bilaterally. Toes are downgoing with plantar stimulation bilaterally. Peripheral pulses are present and of normal quality distally in all four limbs. There is no peripheral edema noted. Laboratory Results Past 24 Hours: 04/18/17 07:02 04/17/17 10:50 Test 04/17/17 10:50 04/17/17 14:00 04/18/17 01:46 04/18/17 07:02 Immature Granulocyte % (Auto) 0.3 % White Blood Count 9.02 K/uL (4.8-10.8) Red Blood Count 4.32 M/uL (4.7-6.1) 3.85 M/uL (4.7-6.1) Hemoglobin 12.5 g/dL (14.0-18.0) Hematocrit 39.2 % (42-52) Mean Corpuscular Volume 90.7 fL (80-100) 88.6 fL (80-100) Mean Corpuscular Hemoglobin 28.9 pg (25-34) 29.6 pg (25-34) Mean Corpuscular Hemoglobin Concent 31.9 g/dl (32-36) 33.4 g/dl (32-36) Platelet Count 333 K/uL (130-400) Mean Platelet Volume 11.8 fL (7.4-10.4) 11.6 fL (7.4-10.4) Neutrophils (%) (Auto) 74.0 % Lymphocytes (%) (Auto) 13.4 % Monocytes (%) (Auto) 8.5 % Eosinophils (%) (Auto) 3.2 % Basophils (%) (Auto) 0.6 % Neutrophils # (Auto) 6.67 K/uL (1.4-6.5) Lymphocytes # (Auto) 1.21 K/uL (1.2-3.4) Monocytes # (Auto) 0.77 K/uL (0.11-0.59) Eosinophils # (Auto) 0.29 K/uL (0-0.5) Basophils # (Auto) 0.05 K/uL (0-0.2) Immature Granulocyte # (Auto) 0.03 K/uL (0.00-0.02) Prothrombin Time 11.1 SECONDS (9.0-12.0) Prothromb Time International Ratio 1.0 (0.9-1.1) Anion Gap 8.0 mmol/L (3-11) Est Creatinine Clear Calc Drug Dose 41.3 ml/min Estimated GFR () 56.9 Estimated GFR (Non- 49.1 BUN/Creatinine Ratio 19.4 (10-20) Calcium Level 10.0 mg/dl (8.5-10.1) Total Bilirubin 0.5 mg/dl (0.2-1) Aspartate Amino Transf (AST/SGOT) 16 U/L (15-37) Alanine Aminotransferase (ALT/SGPT) 33 U/L (12-78) Alkaline Phosphatase 78 U/L (45-117) Total Protein 7.4 gm/dl (6.4-8.2) Albumin 3.5 gm/dl (3.4-5.0) Globulin 3.9 gm/dl (2.5-4.0) Albumin/Globulin Ratio 0.9 (0.9-2) Lipase 294 U/L (73-393) Urine Color YELLOW Urine Appearance CLEAR (CLEAR) Urine pH 7.5 (4.5-7.5) Urine Specific [place] 1.015 (1.000-1.030) Urine Protein NEG (NEG) Urine Glucose (UA) NEG (NEG) Urine Ketones NEG (NEG) Urine Occult Blood NEG (NEG) Urine Nitrite NEG (NEG) Urine Bilirubin NEG (NEG) Urine Urobilinogen NEG (NEG) Urine Leukocyte Esterase NEG (NEG) Urine WBC (Auto) 1-5 /hpf (0-5) Urine RBC (Auto) 0-4 /hpf (0-4) Urine Hyaline Casts (Auto) 1-5 /lpf (0-5) Urine Epithelial Cells (Auto) 0-5 /lpf (0-5) Urine Bacteria (Auto) 2+ (NEG) Activated Partial Thromboplast Time 53.9 SECONDS (21.0-31.0) Partial Thromboplastin Ratio 2.1 RDW Standard Deviation 44.0 fL (36.4-46.3) RDW Coefficient of Variation 13.6 % (11.5-14.5) Test 04/18/17 07:05 Bedside Glucose 195 mg/dl (70-99) Imaging MRI OF THE BRAIN WITHOUT CONTRAST CLINICAL HISTORY: New right facial droop. COMPARISON STUDY: MRI of the brain April 09, [address] performed earlier today. TECHNIQUE: Utilizing a 1.5 Eunice magnet and dedicated coil, multiplanar, multiecho imaging of the brain was performed without IV contrast. FINDINGS: Several small foci of restricted diffusion within the left frontal and parietal lobes are new since MRI of April 09, 2017 and suggest acute infarcts. The acute infarct within the left frontal lobe shown on MRI of April 09, 2017 demonstrates expected evolution. A few acute punctate infarcts within the right parietal and occipital lobes are also noted. There is no mass effect. No hemorrhage is present. Ventricular system is normal for age. Basilar cisterns are patent. There are no extra-axial collections. Flow-voids for the major intracranial vessels are present. White matter T2 hyperintense foci suggest small vessel disease. Calvarial signal is maintained. IMPRESSION: Interval development of several small foci of acute infarction within the left frontal and parietal lobes with punctate acute infarcts within the right parietal and occipital lobes since MRI of April 09, 2017. No mass effect or hemorrhage. The findings suggest an embolic event. Electronically signed by: Sherman Dillard M.D. 04/17/2017 11:05 PM Impression 1 multiple, small, acute CVAs likely embolic. This is in the setting of atrial fibrillation and he may be going in and out of this rhythm occasionally. He had one stroke on April 08 of a small peripheral nature on the left in the middle cerebral artery distribution, was put on anticoagulant, and now, 1 week later, has had more embolic strokes. When he came to the emergency room all his anticoagulant parameters were in normal limits and I suspect she was not anticoagulated enough with the medication. He was put on a low-dose of Eloquis at 2.5 mg twice a day probably because of his advanced age, instead of the usual dose of 5 mg twice a day. He remains on 81 mg aspirin tablet which is adequate for small vessel ischemia prevention but not embolic events. 2. Old small vessel ischemic changes of a moderate nature Risk factors for small vessel ischemic events include hypertension and diabetes. These have been difficult to control in this patient 3. Hypertension, not adequately controlled 4. Hyperglycemia, improved but not adequately controlled 5. Absent reflexes diffusely. This patient probably has a mild underlying polyneuropathy due to advanced age Plan 1. Anticoagulate at a more appropriate dose Eloquis should be used at 5 mg twice a day. The prescribing information suggests that the patient have 2 out of the 3 following parameters to use the lower dose of this medication. He only has one out of 3 (age greater than 80) 6. His creatinine is less than 1.5 at 1.3 and his weight is greater than 60 kg. 2. Continue physical, occupational, and speech therapy 3. Avoid high-dose statins in lieu of his advanced age and cholesterol level of 133. 4. Control blood pressure shooting for a mean arterial pressure of between 100 and 105 5. Control glucose as best as possible. 6. Consider CHRISTOFER to look at the back of the heart and aortic arch. I see no need for additional neurologic testing at this time. I spoke with Dr. Galindo regarding this case including differential diagnosis and treatment options.
[2017-04-18] MEDS ORDERED: VERAPAMIL HCL 240 MG TABCR PO SCH (09:00)
[2017-04-18] MEDS ORDERED: ASCORBIC ACID 500 MG TAB PO SCH (09:00)
[2017-04-18] MEDS ORDERED: ASPIRIN 81 MG ECTAB PO SCH (09:00)
--- NOTE | 2017-04-18 11:27 | Discharge Summary ---
Discharge Summary Date of Service Apr 18, 2017. (Josh. Galindo M.D.) Discharge Summary Admission Date: Apr 17, 2017 at 15:58 Discharge Date: Apr 18, 2017 Discharge Disposition: Rehab Principal Diagnosis: Multiple ischemic CVA Problems/Secondary Diagnoses: - Atrial fibrillation - Hypertension - Diabetes Mellitus Type 2 Immunizations: Have You Had Influenza Vaccine: Yes Influenza Vaccine Date: Apr 27, 2009 History of Tetanus Vaccine?: Unknown History of Pneumococcal: Yes Pneumococcal Date: Apr 27, 2007 History of Hepatitis B Vaccine: Unknown Procedures: - CT head - Chest x-ray [id number] MRI OF THE BRAIN WITHOUT CONTRAST IMPRESSION: Interval development of several small foci of acute infarction within the left frontal and parietal lobes with punctate acute infarcts within the right parietal and occipital lobes since MRI of April 09, 2017. No mass effect or hemorrhage. The findings suggest an embolic event. Consultations: Neurology (Josh. Galindo M.D.) Discharge Exam - Right facial droop. Right-sided tongue deviation on extension. Mild difficulty with finger-nose with RUE. - Overall (B) upper and lower extremity strength 5/5, sensation distally intact. - Can speak a few words at a time, somewhat understandable, but definitely expressive aphasia vs speech challenges. - Otherwise CN appear intact. Review of Systems: Constitutional: No fever, No chills Respiratory: No cough, No shortness of breath Cardiovascular: No chest pain Abdomen: No nausea, No vomiting, No diarrhea, No constipation Neurologic: No weakness, No numbness/tingling Integumentary: No rash Physical Exam: General Appearance: no apparent distress Respiratory/Chest: lungs clear, normal breath sounds Cardiovascular: no edema, no murmur, + irregularly irregular Abdomen / GI: soft Neurologic/Psychiatric: alert, normal mood/affect (Josh. Galindo M.D.) Hospital Course 86yo male with recent ischemic CVA on 04Sep presented/admitted from ED after noted to have some new neuro findings on exam while at inpt rehab on 12Sep. CVA: Question of if pt had a new basal ganglia CVA based on CT from this ED visit. Pt noted to have a new right facial droop (prior was left facial) and right tongue deviation. Otherwise no immediate changes in neuro status and no particular pt concerns except a bit of worsening speech. Case was discussed with neurology (Dr. Orr) while in the ED, asked for repeat MRI and to re- contact if any changes noted as compared with a week ago. MRI on 12Sep concerning for interval multiple small embolic strokes. On 13Sep, neurology was consulted and recommended the followin. Anticoagulate at a more appropriate dose Eloquis should be used at 5 mg twice a day. The prescribing information suggests that the patient have 2 out of the 3 following parameters to use the lower dose of this medication. He only has one out of 3 (age greater than 80) 6. His creatinine is less than 1.5 at 1.3 and his weight is greater than 60 kg. 2. Continue physical, occupational, and speech therapy 3. Avoid high-dose statins in lieu of his advanced age and cholesterol level of 133. 4. Control blood pressure shooting for a mean arterial pressure of between 100 and 105 5. Control glucose as best as possible. 6. Consider CHRISTOFER to look at the back of the heart and aortic arch. A CHRISTOFER was not ordered as the pt had a TTE on 04Sep and any anticipated results from a new CHRISTOFER would not likely global climate change researcher. Pt underwent a speech/ swallow eval and was noted to seem actually improved compared to eval about a week ago. They recommended a mechanical soft diet. PMH Afib: Diagnosed during last admission earlier in the month. Had some bursts of increase rate during brief inpt stay, likely since he wasn't on his verapamil while NPO. Will transition back to his PO doses as prior and rec'd ongoing monitoring for rate control. Increase eliquis as noted by neuro above for better anticoagulation. Was on heparin as inpt. PMH HTN: Held home lisinopril while NPO. Otherwise plan to restart prior home meds at d/c. PMH DM2: Last HbA1c was 7.6 Held here while NPO, on insulin sliding scale as inpt. Otherwise plan to restart prior home meds at d/c. DVT prophy as inpt: Heparin. Code status: DNR Level 5 Total Time Spent: Greater than 30 minutes This includes examination of the patient, discharge planning, medication reconciliation, and communication with other providers. (Josh. Galindo M.D.) Discharge Instructions Please refer to the electronic Patient Visit Report (Discharge Instructions) for additional information. (Josh. Galindo M.D.) Speech Therapy Discharge Instructions * 1. Moist mechanical soft diet 2. Aspiration precautions: Fully upright; straws okay; small bites and sips with double swallows; alternate solids and liquids; stringent oral hygiene to minimize oral bacteria 3. Medications should be given in a carrier (eg, apple sauce, pudding, etc.). 4. Check patient for oral pocketing after meals. 5. Pt would benefit from continued EDUCATION CONSULTANT intervention for dysarthria and dysphagia. @1600: Noted that Patient's Urine culture came back positive for Staph Species ( no speciation or sensitives yet). Nurse Tuyet at [facility] was informed and she is to let Dr. Murrell or Dr. Cole know. Offered to call in prescription but she said they would probably put in orders when he gets there. (Johana Armenta MD) Follow-Up - Transfer back to [facility] for further rehabilitation. - Otherwise continue plan with PCM and neuro f/u as previously discussed on last hospital d/c a week ago. (Josh. Galindo M.D.) History Resident Physician Supervision Note: I was present with Dr. Galindo during the history and exam. I discussed the case with the resident and agree with the findings and plan as documented in the note. Any exceptions or clarifications are listed here. Pt reports considerable improvement in subjective speech today with cooboration from EDUCATION CONSULTANT that he is back to his baseline from previous discharge. At present, he reports no headache, CP/palpitations, SOB, nausea. (Mitchell Jung MD) General Appearance: WD/WN, no apparent distress Eye Exam: bilateral eye PERRL, bilateral eye EOMI Neck: non-tender, full range of motion, supple, other (no bruit) Respiratory: chest non-tender, lungs clear, normal breath sounds, no respiratory distress Cardiovascular: normal peripheral pulses, regular rate, rhythm, no edema, no murmur Neurologic/Psychiatric: alert, normal mood/affect, oriented x 3, other (4+/5 LUE and LLE, stable to moderately improved from previous. Improvement in Rward tongue deviation) (Mitchell Jung MD) Assessment/Plan 86 y/o male h/o DM, HTN, AF, recent CVA presents w/ worsening dysarthria concerning for repeat CVA CVA w/ new onset dysarthria - improved since previous - increased apixaban to 5mg daily, continued secondary prophylaxis w/ statin and ASA Atrial fibrillation - resume previous medication regimen HTN - resume home medication DMII - resume glipizide and metformin. Would monitor carefully for hypoglycemia w/ glipizide in outpatient setting. (Mitchell Jung MD)
[2017-04-18] MEDS ORDERED: APIX1TAB3 PO (11:30)
--- NOTE | 2017-04-18 11:33 | Discharge Instructions ---
Discharge Instructions Date of Service Apr 18, 2017. 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 . Instructions / Follow-Up Instructions / Follow-Up - You are on track to return to [facility] for further rehabilitation. - Follow up with your primary care provider and neurologist as previously planned before this most recent admission. Current Hospital Diet Patient's current hospital diet: Diabetes Type 2 Diet Discharge Diet Recommended Diet: N/A Procedures Procedures Performed: MRI brain, CT head, Chest X-ray, swallow evaluation. Pending Studies Studies pending at discharge: no Laboratory Results Hemoglobin A1c Test 04/09/17 10:08 Range/Units Estimated Average Glucose 171 mg/dl Hemoglobin A1c 7.6 H 4.5-5.6 % Lipid Panel Test 04/10/17 05:59 Range/Units Triglycerides Level 109 0-150 mg/dl Cholesterol Level 133 0-200 mg/dl HDL Cholesterol 42 mg/dl Cholesterol/HDL Ratio 3.2 LDL Cholesterol, Calculated 69 mg/dl Medical Emergencies . Who to Call and When: Medical Emergencies: If at any time you feel your situation is an emergency, please call 911 immediately. . Non-Emergent Contact Non-Emergency issues call your: Primary Care Provider . . "Provider Documentation" section prepared by Chadd Galindo. . VTE Core Measure Inpt VTE Proph given/why not?: Unfractionated heparin SQ
[2017-04-18] MEDS ORDERED: APIXABAN 2.5 MG TAB PO SCH (12:00)
[2017-04-18] MEDS ORDERED: NURSING VERBAL MED ORDER ONE (12:45)
[2017-04-18] MEDS ORDERED: METOPROLOL TARTRATE 50 MG TAB PO ONE (13:45)
[2017-04-18] MEDS ORDERED: VERAPAMIL HCL 240 MG TABCR PO ONE (14:00)
[2017-04-18] MEDS ORDERED: PRAVASTATIN SOD 40 MG TAB PO ONE (14:00)
[2017-04-18] MEDS ORDERED: LISINOPRIL 20 MG TAB PO ONE (14:00)
[2017-04-18] MEDS ORDERED: ASPIRIN 81 MG ECTAB PO ONE (14:00)
== END 2017-04-18 16:03 ==
LOC: EDBD 10:43 → C.EDC 10:44 → C.MED 15:58 → ENRESERV 16:50
PROVIDERS: ADMIT Family Medicine; ATTEND Family Medicine
DX: I63.9 Cerebral infarction, unspecified (principal); E11.9 Type 2 diabetes mellitus without complications; I10 Essential (primary) hypertension; I48.91 Unspecified atrial fibrillation; K21.9 Gastro-esophageal reflux disease without esophagitis; M10.9 Gout, unspecified; Z66 Do not resuscitate; Z86.73 Personal history of transient ischemic attack (TIA), and cerebral infarction without residual deficits; Z87.891 Personal history of nicotine dependence; Z79.4 Long term (current) use of insulin; R53.81 Other malaise; Z79.899 Other long term (current) drug therapy

== ENCOUNTER → 2017-05-08 | Outpatient (CLI) | payer OTHER ==
[~2017-05-08] MED LIST changes: +APIX1TAB3 PO; +DOCU1TAB6 PO; +GLIP5TAB3 PO; +NVLG
[2017-05-08 17:20] LABS: BASO % 0.6 %; BASO ABS # 0.04 K/uL (0-0.2); COMPLETE YES; EOS % 3.1 %; HEMATOCRIT 36.1 % (42-52); IG% 0.3 %; LYMPH ABS # 1.28 K/uL (1.2-3.4); MEAN CELL VOLUME 89.8 fL (80-100); MEAN CORPUSCULAR HEMOGLOBIN 29.1 pg (25-34); MEAN CORPUSCULAR HGB CONC 32.4 g/dl (32-36); MEAN PLATELET VOLUME 12.3 fL (7.4-10.4); MONO % 6.8 %; NEUT % 70.2 %; PLATELET COUNT 249 K/uL (130-400); RED BLOOD COUNT 4.02 M/uL (4.7-6.1); WHITE BLOOD COUNT 6.72 K/uL (4.8-10.8)
[2017-05-08 17:48] LABS: ALT/SGPT 19 U/L (12-78); AST/SGOT 9 U/L (15-37); BLOOD UREA NITROGEN 28 mg/dl (7-18); BUN/CREATININE RATIO 18.8 (10-20); CARBON DIOXIDE 29 mmol/L (21-32); CHLORIDE 104 mmol/L (98-107); GLUCOSE 169 mg/dl (70-99); POTASSIUM 4.4 mmol/L (3.5-5.1); SODIUM 139 mmol/L (136-145)
[2017-05-08 17:51] LABS: ALB/GLOB RATIO 1.1 (0.9-2); ALKALINE PHOSPHATASE 71 U/L (45-117)
== END | disposition home or self-care (01) ==
LOC: C.LAB1850 15:58
PROVIDERS: ATTEND Nurse Practitioner Adult Health
DX: I63.9 Cerebral infarction, unspecified (principal); I48.91 Unspecified atrial fibrillation; I10 Essential (primary) hypertension; D64.9 Anemia, unspecified

== ENCOUNTER 2017-10-16 16:09 | Emergency (ER) | payer OTHER ==
[~2017-10-16 16:09] MED LIST changes: -APIX1TAB3 PO; -ASCO-63 PO; -ASPI81TA28 PO; -DOCU1TAB6 PO; -ELQ25 PO; -FERR324T PO; -GLIP5TAB3 PO; -LISI-725 PO; -METF-384 PO; -METO50TA16 PO; -NVLG; -PRAV40TA2 PO; -VERA240T10 PO
[2017-10-16] MEDS ORDERED: FERR325T18 PO (16:27)
[2017-10-16] MEDS ORDERED: ASPI81TA28 PO (16:27)
[2017-10-16] MEDS ORDERED: METF1TAB53 PO (16:27)
[2017-10-16] MEDS ORDERED: GLIP-197 PO (16:27)
[2017-10-16] MEDS ORDERED: APIX1TAB3 PO (16:27)
[2017-10-16] MEDS ORDERED: PRVC/40 PO (16:27)
[2017-10-16] MEDS ORDERED: LISI-725 PO (16:27)
[2017-10-16] MEDS ORDERED: METO50TA16 PO (16:27)
[2017-10-16] MEDS ORDERED: VERA240T20 PO (16:27)
[2017-10-16 16:41] VITALS: TEMP 36.4; Ht 177.8 cm
[2017-10-16 17:20] LABS: BASO % 0.1 %; BASO ABS # 0.01 K/uL (0-0.2); EOS % 0.6 %; EOS ABS # 0.05 K/uL (0-0.5); HEMATOCRIT 35.3 % (42-52); HEMOGLOBIN 11.8 g/dL (14.0-18.0); IG# 0.02 K/uL (0.00-0.02); LYMPH % 13.3 %; LYMPH ABS # 1.21 K/uL (1.2-3.4); MEAN CELL VOLUME 88.7 fL (80-100); MEAN CORPUSCULAR HEMOGLOBIN 29.6 pg (25-34); MEAN CORPUSCULAR HGB CONC 33.4 g/dl (32-36); MEAN PLATELET VOLUME 11.5 fL (7.4-10.4); MONO % 8.1 %; MONO ABS # 0.74 K/uL (0.11-0.59); NEUT % 77.7 %; NEUT ABS # 7.05 K/uL (1.4-6.5); PLATELET COUNT 320 K/uL (130-400); RED CELL DISTRIBUTION WIDTH CV 15.4 % (11.5-14.5); RED CELL DISTRIBUTION WIDTH SD 49.1 fL (36.4-46.3); WHITE BLOOD COUNT 9.08 K/uL (4.8-10.8)
[2017-10-16 17:29] LABS: INR 1.1 (0.9-1.1); PTT PATIENT 30.1 SECONDS (21.0-31.0)
[2017-10-16] MEDS ORDERED: PANT40TA PO (17:43)
[2017-10-16] MEDS ORDERED: LDDP5 TOP (17:43)
--- NOTE | 2017-10-16 17:50 | DIAGNOSTIC IMAGING REPORT ---
CHEST 2 VIEWS ROUTINE CLINICAL HISTORY: Dizziness. Evaluate for pneumonia. COMPARISON STUDY: Chest radiograph September 19, 2017. 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 There is no pneumothorax or pleural effusion. There is pulmonary vascular congestion without evidence for pulmonary edema. Moderate cardiomegaly is unchanged. IMPRESSION: Pulmonary vascular congestion without overt pulmonary edema. Electronically signed by: Sherman Dillard M.D. 10/16/2017 5:49 PM Dictated Date/Time: 10/16/2017 5:47 PM
[2017-10-16 17:51] LABS: ALBUMIN 3.3 gm/dl (3.4-5.0); ALKALINE PHOSPHATASE 84 U/L (45-117); ALT/SGPT 31 U/L (12-78); AST/SGOT 17 U/L (15-37); BLOOD UREA NITROGEN 22 mg/dl (7-18); CALCIUM 8.6 mg/dl (8.5-10.1); CARBON DIOXIDE 26 mmol/L (21-32); CREATININE 1.45 mg/dl (0.60-1.40); GLUCOSE 35 mg/dl (70-99); POTASSIUM 4.3 mmol/L (3.5-5.1); SODIUM 136 mmol/L (136-145); TOTAL PROTEIN 7.4 gm/dl (6.4-8.2)
[2017-10-16] MEDS ORDERED: DEXTROSE 50% 50 ML SYR ONE (17:57)
[2017-10-16] MEDS ORDERED: CIPROFLOXACIN 400MG / 200ML D5W IV STA (20:11)
[2017-10-16] MEDS ORDERED: CIPR-255 PO (21:30)
[2017-10-16 21:50] VITALS: BP 131/76; PULSE 60; O2SAT 96
--- NOTE | 2017-10-16 21:57 | EMERGENCY ROOM VISIT NOTE ---
History Report prepared by Torsten: Bobby Engel Under the Supervision of: Dr. Rudy Moore M.D. First contact with patient: 16:13 Stated Complaint: DIZZINESS, History of Present Illness The patient is an 86 year old male who presents to the Emergency Room via EMS from the [facility] with a low temperature reading that was noted earlier today. Per the patient's nephew, the patient had his vitals checked at the [facility] earlier this morning, and he was noted to have a temperature of 95.6 via an ear reading. The patient has noted the past 2 mornings that he has skipped breakfast due to not feeling well, but the patient recovered as the days went on. Per the patient's nephew, the patient had a stroke in May, and the patient was then diagnosed with atrial fibrillation in June. The patient's nephew notes that the doctor was concerned at that time that the patient was not on a medication for the atrial fibrillation. However, the patient is noted to currently be on Eliquis, Aspirin, Lisinopril, and Metoprolol. The patient says that he currently feels okay, but this morning he felt sweaty and warm. The patient states that when he got up to go to lunch earlier today, he walked 10 feet and felt lightheaded. He says that the room was not spinning. He denied having any vertigo. He adds that he had a bit of diarrhea last night. The patient denies any cough, cold symptoms, worsening shortness of breath, abdominal pain, melena, hematochezia, unilateral weakness or numbness. The patient sees a PA-C at the [facility], and the PA-C recommended the patient to come here due to the low temperature reading. The patient's last appointment there was a month ago and had blood work done, with an EKG and echocardiogram, and was scheduled to have a cardiology appointment but the patient ended up being sick, so that appointment has not happened yet. The patient has no history of asthma or emphysema. He was admitted here recently for influenza. Source of History: patient, family (nephew) Onset: Noted earlier today Position: other (global) Symptom Intensity: 95.6 Quality: other (low temperature) Associated Symptoms: + diarrhea, No cough (or cold symptoms), No SOB ( worsening), No abdominal pain, No melena, No hematochezia, No urinary symptoms, No weakness, No numbness Note: Associated symptoms: Sweaty and warm this morning. Lightheaded after walking 10 feet earlier today. Denies room spinning. Review of Systems See HPI for pertinent positives & negatives. A total of 10 systems reviewed and were otherwise negative. Past Medical & Surgical Medical Problems: (1) Anemia Nos (2) Diab Madelyn Wo Comp Type Ii Or Nos/Not Uncontrolled (3) Dysarthria (4) Esophageal Reflux (5) Flu (6) Gout Nos (7) Hypertension Nos (8) Stroke-like symptoms Family History Family history omitted secondary to patient's advanced age. Social History Smoking Status: Never Smoker Drug Use: none Marital Status: Housing Status: lives alone Occupation Status: retired Current/Historical Medications Scheduled Apixaban (Eliquis), 5 MG PO BID Aspirin (Aspirin Ec), 81 MG PO DAILY Ciprofloxacin Hcl (Cipro), 500 MG PO BID Ferrous Gluconate (Ferrous Gluconate), 324 MG PO DAILY Glipizide (Glipizide Er), 1 TAB PO QAM Lidocaine (Lidocaine), 1 PATCH TOP QAM Lisinopril (Zestril), 20 MG PO BID Metformin Hcl (Glucophage Ext Rel), 1,000 MG PO BID Metoprolol Tartrate (Lopressor) (Lopressor), 50 MG PO BID Pantoprazole (Protonix), 40 MG PO DAILY Pravastatin Sod (Pravastatin Sodium), 40 MG PO HS Verapamil Sust Rel (Calan Sr Ext Rel), 240 MG PO DAILY Allergies Coded Allergies: No Known Allergies (Verified , 09/19/17) Physical Exam Vital Signs Date Time Temp Pulse Resp B/P (MAP) Pulse Ox O2 Delivery O2 Flow Rate FiO2 10/16/17 20:52 56 10/16/17 20:00 74 20 10/16/17 19:00 20 10/16/17 18:31 60 18 137/78 96 Room Air 10/16/17 17:51 69 16 126/63 98 Room Air 10/16/17 17:10 68 18 141/72 100 Room Air 83 120/72 96 142/77 10/16/17 16:46 72 10/16/17 16:41 36.4 71 23 139/75 98 Room Air 10/16/17 16:32 36.4 83 22 139/75 100 Room Air Physical Exam Constitutional: Vital signs reviewed. Eyes: Pupils are equal round reactive to light. Conjunctiva are noninjected. ENT: Pharynx is clear without erythema or exudate. Mucous membranes are moist. Neck supple without meningeal signs. Respiratory: Clear to auscultation bilaterally. Breath sounds are equal bilaterally. Cardiovascular: Irregularly irregular rhythm. Normal rate. GI: Soft, nondistended and nontender. Bowel sounds are present. Musculoskeletal: No peripheral edema. No lower extremity tenderness. Integumentary: No cyanosis. Neurological: The patient is awake and alert. Cranial nerves II-XII are intact except hard of hearing. Motor is 5 out of 5 all extremities. Sensation is intact to light touch all extremities. Normal speech. No pronator drift. No limb ataxia. Psychiatric: Normal affect. Medical Decision & Procedures ER Provider Diagnostic Interpretation: X-ray results as stated below per interpretation by me and the radiologist: CHEST 2 VIEWS ROUTINE CLINICAL HISTORY: Dizziness. Evaluate for pneumonia. COMPARISON STUDY: Chest radiograph September 19, 2017. 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 There is no pneumothorax or pleural effusion. There is pulmonary vascular congestion without evidence for pulmonary edema. Moderate cardiomegaly is unchanged. IMPRESSION: Pulmonary vascular congestion without overt pulmonary edema. Electronically signed by: Sherman Dillard M.D. 10/16/2017 5:49 PM Dictated Date/Time: 10/16/2017 5:47 PM Laboratory Results 10/16/17 17:05 Red Blood Count 3.98, Mean Corpuscular Volume 88.7, Mean Corpuscular Hemoglobin 29.6, Mean Corpuscular Hemoglobin Concent 33.4, Mean Platelet Volume 11.5, Neutrophils (%) (Auto) 77.7, Lymphocytes (%) (Auto) 13.3, Monocytes (%) (Auto) 8.1, Eosinophils (%) (Auto) 0.6, Basophils (%) (Auto) 0.1, Neutrophils # (Auto) 7.05, Lymphocytes # (Auto) 1.21, Monocytes # (Auto) 0.74, Eosinophils # (Auto) 0.05, Basophils # (Auto) 0.01 10/16/17 17:05 Test 10/16/17 17:05 10/16/17 19:10 10/16/17 21:24 White Blood Count 9.08 K/uL (4.8-10.8) Red Blood Count 3.98 M/uL (4.7-6.1) Hemoglobin 11.8 g/dL (14.0-18.0) Hematocrit 35.3 % (42-52) Mean Corpuscular Volume 88.7 fL (80-100) Mean Corpuscular Hemoglobin 29.6 pg (25-34) Mean Corpuscular Hemoglobin Concent 33.4 g/dl (32-36) Platelet Count 320 K/uL (130-400) Mean Platelet Volume 11.5 fL (7.4-10.4) Neutrophils (%) (Auto) 77.7 % Lymphocytes (%) (Auto) 13.3 % Monocytes (%) (Auto) 8.1 % Eosinophils (%) (Auto) 0.6 % Basophils (%) (Auto) 0.1 % Neutrophils # (Auto) 7.05 K/uL (1.4-6.5) Lymphocytes # (Auto) 1.21 K/uL (1.2-3.4) Monocytes # (Auto) 0.74 K/uL (0.11-0.59) Eosinophils # (Auto) 0.05 K/uL (0-0.5) Basophils # (Auto) 0.01 K/uL (0-0.2) RDW Standard Deviation 49.1 fL (36.4-46.3) RDW Coefficient of Variation 15.4 % (11.5-14.5) Immature Granulocyte % (Auto) 0.2 % Immature Granulocyte # (Auto) 0.02 K/uL (0.00-0.02) Prothrombin Time 11.5 SECONDS (9.0-12.0) Prothromb Time International Ratio 1.1 (0.9-1.1) Activated Partial Thromboplast Time 30.1 SECONDS (21.0-31.0) Partial Thromboplastin Ratio 1.2 Anion Gap 6.0 mmol/L (3-11) Estimated GFR () 49.8 Estimated GFR (Non- 43.0 BUN/Creatinine Ratio 15.4 (10-20) Calcium Level 8.6 mg/dl (8.5-10.1) Total Bilirubin 0.4 mg/dl (0.2-1) Direct Bilirubin 0.2 mg/dl (0-0.2) Aspartate Amino Transf (AST/SGOT) 17 U/L (15-37) Alanine Aminotransferase (ALT/SGPT) 31 U/L (12-78) Alkaline Phosphatase 84 U/L (45-117) Troponin I < 0.015 ng/ml (0-0.045) Total Protein 7.4 gm/dl (6.4-8.2) Albumin 3.3 gm/dl (3.4-5.0) Urine Color DK YELLOW Urine Appearance TURBID (CLEAR) Urine pH 5.0 (4.5-7.5) Urine Specific [place] 1.019 (1.000-1.030) Urine Protein TRACE (NEG) Urine Glucose (UA) NEG (NEG) Urine Ketones TRACE (NEG) Urine Occult Blood 1+ (NEG) Urine Nitrite POS (NEG) Urine Bilirubin NEG (NEG) Urine Urobilinogen NEG (NEG) Urine Leukocyte Esterase LARGE (NEG) Urine WBC (Auto) >30 /hpf (0-5) Urine RBC (Auto) 0-4 /hpf (0-4) Urine Hyaline Casts (Auto) 1-5 /lpf (0-5) Urine Epithelial Cells (Auto) 20-30 /lpf (0-5) Urine Bacteria (Auto) 2+ (NEG) Urine Yeast (Auto) (NONE PRSENT) Bedside Glucose 116 mg/dl (70-99) Laboratory results as reviewed by me. Medications Administered Medications (Trade) Dose Ordered Sig/Maritza Route Start Time Stop Time Status Last Admin Dose Admin Dextrose (Dextrose 50% 50ML Syringe) 50 ml STK-MED ONCE .ROUTE 10/16/17 17:57 10/16/17 17:58 DC 10/16/17 18:01 25 ML Ciprofloxacin/ Dextrose (Cipro / D5W) 400 mg NOW STAT IV 10/16/17 20:11 10/16/17 20:12 DC 10/16/17 20:21 400 MG ECG Per My Interpretation Indication: other (Dizziness) Rate (beats per minute): 84 Rhythm: atrial fibrillation Findings: Q waves (Inferior), no ectopy ED Course 1614: The patient was evaluated in room B11B. A complete history and physical exam was performed. 1758: I reevaluated the patient and his blood sugars are in the 30s. He is awake and alert. He says that he had breakfast and lunch, but not dinner. We will give him D50 and something to eat. 1835: I reevaluated the patient and he had some crackers and juice. We are waiting for a meal tray. 2008: The patient's repeat BSG was 81. 2010: Cipro / D5W 400 mg IV. 2129: Upon reevaluation, the patient had a blood sugar of 118. I discussed tonight's findings with him. He verbalized agreement of the treatment plan. He was discharged home. Medical Decision This is an 86-year-old male presents with lightheadedness upon standing with a low temperature reading this morning. Differential diagnosis includes orthostatic hypotension, dehydration, metabolic derangement, infection, erroneous temperature reading. I did perform a limited focused review of portions of the patient's old chart on the electronic medical record. The patient was admitted September 19 for influenza A, and acute kidney injury. I did evaluate the patient as noted above. The patient was sent here because he was found to have a low temperature earlier today. He also complained of some dizziness upon standing. He denied any vertigo to me. He is neurologically intact. He has no other complaints. IV access was established. The patient was placed on a continuous telemetry monitor. I did order and personally review the patient's 12-lead EKG and chest x-ray as described above. There is no evidence of pneumonia on chest x-ray. I did order and review the patient's blood work as noted in the electronic medical record. He is anemic but his hemoglobin is improved since his last visit. He is hypoglycemic. The patient is awake and alert. He was given half an amp of D50 and oral glucose. He was also given a meal tray. I did order a urine analysis. This showed an obvious infection. A urine culture was sent. He is treated with Cipro 400 mg IV. His blood sugar did improve after eating. He was discharged back to his assisted living with a prescription for Cipro for 7 days. He was told to check his sugars frequently and told to hold his glyburide for the next several days due to his hypoglycemia. The patient was discharged in good condition. Medication Reconcilliation Current Medication List: was personally reviewed by me Blood Pressure Screening Patient's blood pressure: Elevated blood pressure Blood pressure disposition: Elevated BP felt to be situational Impression Primary Impression: UTI (urinary tract infection) Additional Impression: Hypoglycemia Scribe Attestation The scribe's documentation has been prepared under my direct and personally reviewed by me in its entirety. I confirm that the note above accurately reflects all work, treatment, procedures, and medical decision making performed by me. Departure Information Dispostion Home / Self-Care Prescriptions Ciprofloxacin Hcl (CIPRO) 500 Mg Tab 500 MG PO BID, #14 TAB Prov: Rudy Moore M.D. 10/16/17 Referrals No Doctor, Assigned (PCP) Patient Instructions ED Diabetes Hypoglycemia Oral Agent, ED UTI Cystitis Male, My [facility] Additional Instructions You have been examined and treated today on an emergency basis only. This is not a substitute for, or an effort to provide, complete comprehensive medical care. It is impossible to recognize and treat all injuries or illnesses in a single emergency department visit. It is therefore important that you follow up closely with your physician. Call as soon as possible for an appointment. Return for worsening symptoms or if you develop fever, vomiting, or any other concerning symptoms. Keep a close eye on your blood sugars. Hold glyburide for the next several days. Resume when your doctor feels it is indicated. Problem Qualifiers Primary Impression: UTI (urinary tract infection) Urinary tract infection type: site unspecified Hematuria presence: with hematuria Qualified Codes: N39.0 - Urinary tract infection, site not specified ; R31.9 - Hematuria, unspecified
== END 2017-10-16 22:27 | disposition home or self-care (01) ==
LOC: EDBD 16:09 → C.EDB 16:11
DX: N39.0 Urinary tract infection, site not specified (principal); E11.649 Type 2 diabetes mellitus with hypoglycemia without coma; R42 Dizziness and giddiness; R19.7 Diarrhea, unspecified; I48.91 Unspecified atrial fibrillation; I10 Essential (primary) hypertension; Z79.01 Long term (current) use of anticoagulants; Z79.82 Long term (current) use of aspirin; Z79.84 Long term (current) use of oral hypoglycemic drugs; Z86.73 Personal history of transient ischemic attack (TIA), and cerebral infarction without residual deficits